=== PATIENT | female | born 2000 | race Two or more races ===

== ENCOUNTER 2023-11-13 07:02 | Emergency (ER) | payer MEDICAID, SELFPAY ==
[2023-11-13 07:11] VITALS: BP 111/56; PULSE 80; RESP 14; TEMP 36.9; O2SAT 98; BMI 23.6
[2023-11-13 07:38] LABS: IDNOW Serial# 6674DD1D
[2023-11-13 07:39] LABS: Strep A Nucleic Acid Negative (Negative)
[2023-11-13] MEDS: dexAMETHasone sod phosphate 10 MG/ML VIAL IVPUSH (09:14)
[2023-11-13] MEDS: Acetaminophen 325 MG TABLET 975 MG PO (09:14)
--- NOTE | 2023-11-13 09:16 | PC.NURSE ---
decadron given po per providers request
--- NOTE | 2023-11-13 09:41 | ED.GENADULT ---
HPI - General Adult General Chief complaint: Upper Respiratory Symptoms Stated complaint: flu like Time Seen by Provider: 11/13/23 09:00 Source: patient Mode of arrival: ambulatory Limitations: no limitations History of Present Illness ED Provider: HARRIETT HERNANDEZ PA-C HPI narrative: 23-year-old female with no significant past medical history presents to the ED today for evaluation of sore throat, odynophagia, watery eyes and shortness of breath x4 days. Admits to being seen at [facility] 4 days ago. She was prescribed cetirizine and Flonase which she has been taking without relief. Endorses worsening sore throat and subjective fevers. Denies difficulty swallowing. Normal p.o. intake. Denies cough, sputum production, dysphagia, nausea or vomiting, rashes. Vaccinations up-to-date. Denies known sick contacts. Related Data Previous Rx's ?Medication ?Instructions ?Recorded penicillin V potassium 500 mg 500 mg PO BID 10 days #20 tabs 11/13/23 tablet phenol 1.5 %-glycerin 33 % mucosal 1 spray mucous membrane Q8-12H PRN 11/13/23 spray (Chloraseptic Max Sore sore throat #118 mL Throat) prednisone 20 mg tablet 40 mg (2 x 20 mg) PO DAILY 4 days 11/13/23 #8 tabs Allergies Allergy/AdvReac Type Severity Reaction Status Date / Time No Known Allergies Allergy Verified 11/13/23 07:12 Review of Systems Review of Systems: Constitutional: No fever, chills, fatigue, night sweats, weight changes ENT/Mouth: No ear pain, hearing loss, nasal congestion, sinus pain, rhinorrhea, +sore throat, +odynophagia, No dysphagia Eyes: No eye pain, swelling, redness, vision changes, discharge Cardio: No chest pain, palpitations, PLATA, orthopnea, peripheral edema Pulm: No SOB, cough, sputum, wheezing, dyspnea, hemoptysis GI: No nausea, vomiting, hematemesis, abdominal pain, diarrhea, constipation, hematochezia, melena : No irregular bleeding, dysuria, frequency, urgency, hesitancy, hematuria, flank pain MSK: No back pain, neck pain, joint pain, myalgias Skin: No lesions, rashes Neuro: No weakness, numbness, paresthesias, LOC, dizziness, headache All other systems reviewed and are negative. [facility] Past Medical History Attestation statement: The following information was validated with the patient. Source: old records reviewed and nursing notes reviewed Social History Social History Advance Directives: No Advance Directives Information Provided: Yes Physical Exam ED Vital Signs: Vital Signs - 24 hr 11/13/23 07:11 11/13/23 10:02 Temperature 98.4 F 97.9 F Pulse Rate 80 Respiratory Rate 14 Blood Pressure 111/56 L Pulse Oximetry 98 Oxygen Delivery Method Room Air BMI result Body Mass Index 23.6 Vital signs stable, afebrile Const General: cooperative, healthy appearing, comfortable and no acute distress Orientation/consciousness: patient oriented x3 Limitations: no limitations HENMT Other: + posterior oropharynx erythematous, no edema, uvula is midline, bilateral tonsillar edema without tonsillar exudates, no peritonsillar masses, controlling secretions and speaking in complete sentences. Head: Yes normal to inspection, Yes normocephalic and Yes atraumatic Ears: hearing grossly normal bilaterally, external ears normal, TM's normal bilaterally, EAC's normal, mastoids normal and no periauricular adenopathy General nose exam: Normal external nose present and No nasal discharge present Face and sinus: Yes normal facial exam and Yes sinuses nontender Eyes General: appearance normal, both eyes and all related structures Pupils: Equal, round and reactive pupils present Neck Other: + no cervical, submandibular or submental LAD. Neck: Yes normal visual inspection and Yes full ROM Resp Effort & Inspection: normal respiratory effort and able to speak in complete sentences Auscultation: clear to auscultation bilaterally Cardio Rate: regular rate Rhythm: regular rhythm GI Inspection: Yes normal to inspection Palpation (GI): Soft to palpation and nontender Skin General skin exam: no rashes or lesions noted Neuro General: patient oriented x3, gait normal and moves all extremities Cranial nerves: Yes Equal, round and reactive pupils present Extrem General: Yes normal to inspection Course Course Course Narrative: 1104-- patient negative for COVID, flu, RSV, and strep throat. Her physical exam findings are consistent with strep throat so I will treat her for this. She was given 1 dose of Decadron and Tylenol in the ED today with improvement in pain. Penicillin sent to pharmacy for treatment of strep throat. Will send for extra days of prednisone to help with tonsillar swelling. tolerating PO in ED. Patient has remained stable throughout ED visit today. Discussed worrisome signs and symptoms and when to return to the ED. All questions answered at this time. Patient is agreeable with disposition and stable for discharge. Medications Administered Discontinued Medications Generic Name Dose Route Start Last Admin Trade Name Essie PRN Reason Stop Dose Admin Acetaminophen 975 mg 11/13/23 09:08 11/13/23 09:14 Acetaminophen 325 Mg Tablet PO 11/13/23 09:09 975 mg ONCE ONE Administration Dexamethasone Sodium Phosphate 10 mg 11/13/23 09:08 11/13/23 09:14 Dexamethasone Sod Phosphate 10 Mg/Ml Vial IVPUSH 11/13/23 09:09 10 mg ONCE ONE Administration Medical Decision Making Medical Decision Making [facility] Narrative: 23-year-old female with no significant past medical history presents to the ED today for evaluation of sore throat, odynophagia, watery eyes and shortness of breath x4 days. Vital signs stable. Afebrile. She is nontoxic appearing in no acute distress. Lungs are CTA bilaterally. No anterior cervical lymphadenopathy. No anterior neck swelling. Bilateral EACs and TMs WNL. posterior oropharynx erythematous, no edema, uvula is midline, bilateral tonsillar edema without tonsillar exudates, no peritonsillar masses, controlling secretions and speaking in complete sentences. Differential diagnosis includes strep throat, viral syndrome, laryngitis. 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 Plan for viral and strep swabs, pain control and re-evaluation. Differential Diagnosis Differential Diagnoses: The differential diagnosis associated with the presentation includes as above. Admission/Observation Not indicated Lab Data [facility] Lab Attestation statement: I reviewed the patient's lab results. as above Labs: Lab Results 11/13/23 11/13/23 Range/Units 07:23 10:00 Influenza Type A (PCR) NEGATIVE (Negative) Influenza Type B (PCR) NEGATIVE (Negative) RSV RNA Qual (PCR) NEGATIVE (Negative) SARS-CoV-2 RNA (RT-PCR) NEGATIVE (Negative) S. pyogenes GrpA FRED Negative (Negative) External Record Review External record reviewed: Inpatient record Prescription Management I considered prescription management with: Pain Medication (Chloraseptic throat spray), Antibiotic (Penicillin) and Other (Prednisone) Social Determinants Patient?s care significantly limited by Social Determinants of Health including: Other Social Determinant of Health Critical Care Time Critical Care Time Critical Care Time: No Discharge Plan Discharge Clinical Impression: Strep pharyngitis Patient Disposition: Home, Self-Care Instructions: Strep Throat (ED) Additional Instructions: You were seen in the ED today for evaluation of sore throat. You tested negative for COVID, flu, RSV and strep throat however your physical exam is consistent with strep throat and you will be treated for this. Penicillin is an antibiotic that has been sent to your pharmacy. Take this twice daily for the next 10 days to treat strep throat. Do not stop taking these antibiotics early or miss any doses as this may cause infection to return or worsen. Chloraseptic throat spray has been sent to your pharmacy to help with sore throat. Prednisone as a steroid that has been sent to your pharmacy. You were given a dose of steroids in the ED today. Start taking prednisone tomorrow to help with tonsillar swelling. Take Tylenol and ibuprofen as needed for body aches or fevers. Make sure to change your toothbrush as this contains bacteria. Strep throat is contagious. If anyone else in your household is exhibiting symptoms, please advise them to come to the ED, urgent care, or to see their primary care provider. Follow up with your primary care provider as needed. Return to the emergency department if your symptoms persist or worsen despite treatment or if you have difficulty swallowing, opening your mouth, or develop a rash. In the case of emergency, call 911.? Prescriptions: New penicillin V potassium 500 mg tablet 500 mg PO BID 10 Days Qty: 20 0RF Chloraseptic Max Sore Throat 1.5-33 % spray,non-aerosol 1 spray mucous membrane Q8-12H PRN (Reason: sore throat) Qty: 118 0RF Rx Instructions: leave on area for 15 seconds then spit out prednisone 20 mg tablet 40 mg PO DAILY 4 Days Qty: 8 0RF Referrals: [facility] [place] Family Medicine [Provider Group] [facility] [place] Primary Care[facility] [Provider Group] [facility] [place] Primary [facility] [Provider Group] Stand Alone Forms: Work/School Release Print Language: Yung
[2023-11-13 10:02] VITALS: TEMP 36.6
[2023-11-13 10:47] LABS: Influenza A PCR NEGATIVE (Negative); Influenza B PCR NEGATIVE (Negative); Resp Syncy Virus RNA Qual PCR NEGATIVE (Negative); SARS COV2 PCR INHOUSE NEGATIVE (Negative)
[2023-11-13 11:07] VITALS: BP 111/56; PULSE 80; RESP 14; TEMP 36.6; O2SAT 98
== END 2023-11-13 11:14 | disposition home or self-care (01) ==
PROVIDERS: Physician Assistant Medical; Emergency Provider Emergency Medicine Emergency Medical Services
DX: J02.0 Streptococcal pharyngitis (principal); R06.02 Shortness of breath; Z03.818 Encounter for observation for suspected exposure to other biological agents ruled out
CPT/HCPCS: 0241U; 87651; 99283; J1100

== ENCOUNTER 2024-04-04 16:23 | Outpatient (REF) | payer SELFPAY ==
[2024-04-05 03:17] LABS: CT PCR DETECTED (Not Detect.); NG PCR NOT DETECTED (Not Detect.)
== END 2024-04-04 16:24 | disposition home or self-care (01) ==
LOC: HO.LNP 16:23
PROVIDERS: Visit Provider Nurse Practitioner
DX: Z13.9 Encounter for screening, unspecified (principal)
CPT/HCPCS: 87491; 87591

== ENCOUNTER 2024-04-06 14:36 | Outpatient (REF) | payer MEDICAID, SELFPAY | END 2024-04-06 14:37 | disposition home or self-care (01) | LOC: HO.US 14:36 | PROVIDERS: PCP Nurse Practitioner; Visit Provider Nurse Practitioner | DX: N92.6 Irregular menstruation, unspecified (principal) | CPT/HCPCS: 76830; 76856 ==

== ENCOUNTER → 2024-04-06 14:39 | Outpatient (BNV) | payer MEDICAID, SELFPAY | PROVIDERS: PCP Nurse Practitioner; Visit Provider Radiology Diagnostic Radiology | DX: N92.1 Excessive and frequent menstruation with irregular cycle (principal) | CPT/HCPCS: 76830; 76856 ==

== ENCOUNTER 2024-04-27 12:44 | Outpatient (REF) | payer MEDICAID, SELFPAY ==
[2024-04-27 13:20] LABS: MANUAL DIFF FLAG NO
[2024-04-27 13:30] LABS: Basophils Percent Auto 0.6 % (0-2); Eosinophils Absolute Auto 0.1 X10*3/uL (0.0-0.4); Eosinophils Percent Auto 1.4 % (0-4); Hematocrit 42.4 % (37.0-47.0); Imm Gran Abs Auto 0.01 X10*3/uL (0.00-0.03); Imm Gran Pct Auto 0.1 % (0.0-0.4); Lymphocytes Absolute Auto 1.6 X10*3/uL (1.2-4.9); Mean Corpuscular Hemoglobin 30.8 pg (27.0-33.0); Mean Corpuscular Volume 93.4 fL (80.0-98.0); Mean Platelet Volume 12.1 fL (9.4-12.3); Monocytes Absolute Auto 0.7 X10*3/uL (0.1-1.2); Monocytes Percent Auto 9.6 % (2-11); Neutrophils Absolute Auto 4.5 x10*3/uL (2.0-8.3); Neutrophils Percent Auto 65.3 % (45-73); Platelet Count 193 X10*3/uL (160-400); Red Blood Count 4.54 X10*6/uL (4.20-5.50); Red Cell Distribution Width 13.2 % (11.0-16.0)
[2024-04-27 14:07] LABS: Anion Gap 10 (12-20); Blood Urea Nitrogen 12 mg/dL (9-16); Calcium 9.1 mg/dL (8.4-10.2); Carbon Dioxide 27 mmol/L (22-29); Chloride 106 mmol/L (96-108); Cholesterol 136 mg/dL (<200); Estimated Glomerular Filt Rate > 60; Glucose Random 94 mg/dL (60-115); HDL Cholesterol 51 mg/dL (>40); Iron 70 mcg/dL (30-160); LDL Cholesterol Calculated 78 mg/dL (<100); Percent Iron Saturation 23 % (15-50); Potassium 3.8 mmol/L (3.3-5.1); Sodium 139 mmol/L (135-145); Total Iron Binding Capacity 309 mcg/dL (228-428); Triglycerides 38 mg/dL (<150); Unsaturated Iron Binding 239 ug/dL
[2024-04-27 14:21] LABS: HBS Num1 0.68 mIU/mL (0-7.99); HBsAGNum1 0.39 S/CO (0.00-0.99); HIV AB/AG Nonreactive (Nonreactive); HIV Num 1 0.06 S/CO (0.00-0.99); Hepatitis B Core Antibody Nonreactive (Nonreactive); Hepatitis B Surface Antigen Negative (Negative); ~HepC Num1 0.09 S/CO (0.00-0.79); ~Hepatitis B Surface Antibody NONREACTIVE (Nonreactive); ~Hepatitis C Antibody Nonreactive (Nonreactive)
[2024-04-27 14:26] LABS: Folate 11.7 ng/mL (> or = 4.0); Vitamin B12 412 pg/mL (200-900)
[2024-04-27 14:31] LABS: Ferritin 51 ng/mL (10-122); TSH reflex Free T4 1.51 uIU/mL (0.32-4.0)
[2024-04-29 07:30] LABS: RPR Rapid Plasma Reagin NON-REACTIVE (NON-REACTIVE)
== END 2024-04-27 12:45 | disposition home or self-care (01) ==
LOC: HO.HHCL 12:44
PROVIDERS: Visit Provider Nurse Practitioner
DX: Z13.9 Encounter for screening, unspecified (principal); N92.6 Irregular menstruation, unspecified; R00.1 Bradycardia, unspecified
CPT/HCPCS: 36415; 80048; 80061; 82607; 82728; 82746; 83540; 84443; 85025; 86592; 86704; 86706; 86803; 87340; 87389

== ENCOUNTER 2024-07-20 16:52 | Emergency (ER) | payer MEDICAID, SELFPAY | END 2024-07-20 18:16 | disposition left against medical advice (07) | PROVIDERS: Emergency Provider Emergency Medicine | DX: J11.1 Influenza due to unidentified influenza virus with other respiratory manifestations (principal); Z53.21 Procedure and treatment not carried out due to patient leaving prior to being seen by health care provider ==

== ENCOUNTER 2024-10-07 08:51 | Emergency (ER) | payer MEDICAID, SELFPAY ==
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
[2024-10-07 09:05] VITALS: BP 121/68; PULSE 56; RESP 16; TEMP 36.6; O2SAT 99; BMI 25.3
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
--- OUTSIDE RECORDS SUMMARY | 2024-10-07 10:32 | XMS_ITS | Clinical Summary ---
Author Organization [employer] Address [address] [place] [address] [address] [place] [address] Care Team Providers Care Topographical Surveyor Name Role Phone Edwardo Fawn BRADFORD Primary Care Provider [phone] Allergies Active Allergy Reactions Criticality Noted Date Comments Pollen Extract 10/03/2022 Medications * This document contains information received from the source organization and may not represent a complete record from that organization. cetirizine (ZyrTEC ALLERGY) 10 MG tablet Take 10 mg by mouth. 4 Active ondansetron ODT (Zofran-ODT) 4 MG disintegrating tablet Take 4 mg by mouth. 3 Active albuterol 108 (90 Base) MCG/ACT inhalerIndications :Mild intermittent asthma without complication Inhale 2 puffs every 4 (four) hours if needed for wheezing. 18 g 3 4 025 Active fluticasone (Flonase Allergy Relief) 50 MCG/ACT nasal sprayIndications:I nfluenza A Administer 1 spray into each nostril Once per day. Shake gently. Before first use, prime pump. After use, clean tip and replace cap. 16 g 1 5 026 Active Active Problems Problem Noted Date Diagnosed Date Routine adult health maintenance 05/02/2024 Assessment & Plan (05/02/2024 8:12 PM EST): -Optometry: 2017 last exam; reports no problems -Dental: established with dental home [facility] dental. Last seen -11/2022 -Breast CA: not due at this time -Cervical CA: due to start screening. Will schedule for pap -Colon CA: not due for routine screening at this time -Lung CA: not due for routine screening at this time -Outstanding IZ: influenza, PCV 20 -low cardiovascular risk -mental health screening negative -healthy social behaviors encouraged -anticipatory guidance reviewed: diet, exercise Resolved Problems Problem Noted Date Diagnosed Date Resolved Date Overweight 05/02/2024 05/02/2024 Encounters Date Type Department Care Team Description 08/31/2024 Population Health Risk Score Community Care [facility] ([facility]) Department [address] [place] [phone] Provider, Population Health Generic 07/29/2024 3:00 PM EST Office Visit [facility] [address] [place] [phone] Fawn Brooke NP Influenza A (Primary Dx) 07/21/2024 4:00 PM EST Office Visit [facility] [address] [place] [phone] Fawn Brooke NP Sore throat (Primary Dx); Viral illness from Last 3 Months Immunizations Name Administration Dates Next Due HPV, Quadrivalent 04/29/2017 [place] SARS-CoV-2 Vaccination 12/03/2020 Meningococcal B, Recombinant 07/06/2019 Meningococcal MCV4O 04/29/2017 Moderna Covid-19 Vaccine 12+ 06/04/2021 Moderna Covid-19 Vaccine 6+ Bivalent 07/24/2022 SARS-CoV-2, Unspecified 12/03/2020 Tdap 04/29/2017 Family History Medical History Relation Name Comments Diabetes Brother Heart disease Maternal Grandfather Heart disease Maternal Grandmother Diabetes Mother's Brother Diabetes Mother's Sister Relation Name Status Comments Brother Maternal Grandfather Maternal Grandmother Mother's Brother Mother's Sister Social History Tobacco Use Types Packs/Day Years Used Date Smoking Tobacco: Never Smokeless Tobacco: Current Tobacco Cessation:Ready to Q uit: Not Asked; Counseling Given: Not Answered Comments:Vapes nicotine two times daily Alcohol Use Standard Drinks/Week Comments Never 0 (1 standard drink = 0.6 oz pur e alcohol) Depression Answer Date Recorded Patient Health Questionnaire-9 Score 3 04/04/2024 Patient Health Questionnaire-9 Score 3 04/04/2024 Last PHQ-9: Questionnaire Data Not on file 1 Housing Stability Answer Date Recorded What is your housing situation today? I have deisi hunter 03/28/[address] you li ve. Do you have problems with any of the following? None of the above 03/28/2024 Food Insecurity Answer Date Recorded Within the past 12 months, y ou worried that your food would run out before you got money to buy more: Never True 03/28/2024 Within the past 12 months,th e food you bought just didn't last and you didn't have enough money to get more: Never True Transportation Answer Date Recorded In the past 12 months, has l ack of transportation kept you from medical appts, meetings, work or from getting things needed for daily living? No 03/28/2024 Utilities Answer Date Recorded In the past 12 months, has t he electric, gas, oil or water company threatened to shut off services in your home? No 03/28/2024 Depression Answer Date Recorded Patient Health Questionnaire-2 Score 1 04/04/2024 Internet Access Answer Date Recorded Internet Access Q1 Yes 03/28/2024 Internet Access Q2 Not on file 03/28/2024 Comments No Sex and Gender Information Value Date Recorded Sex Assigned at Female 07/24/2022 1:52 PM EST Legal Sex Female 1:50 PM EST Gender Identity Female 07/24/2022 1:52 PM EST Sexual Orientation Straight 07/24/2022 1: 52 PM EST Last Filed Vital Signs Vital Sign Reading Time Taken Comments Blood Pressure 115/70 07/29/2024 3:05 PM EST Pulse 91 07/29/2024 3:05 PM EST Temperature 36.7 ??C (98 ??F) 07/29/2024 3:05 PM EST Respiratory Rate 18 07/29/2024 3:05 PM EST Oxygen Saturation 98% 07/29/2024 3:05 PM EST Inhaled Oxygen Concentration - - Weight 62.9 kg (138 lb 9.6 oz) 07/29/2024 3:05 P M EST Height 160 cm (5' 3 ) 07/29/2024 3:05 PM EST Body Mass Index 24.55 07/29/2024 3:05 PM EST Plan of Treatment Health Maintenance Due Date Last Done Comments Dental Oral Exam 2002 Dental Prophylaxis 2002 Dental X-Ray: Bitewings 2002 Family Planning (PISQ) 2017 HPV Vaccines (2 - 2-dose series) 10/27/2017 04/29/2017 Hepatitis B Vaccines (1 of 3 - 19+ 3-dose series) 2021 Pneumococcal Vaccine: Pediatrics (0 to 5 Years) and At-Risk Patients (6 to 49) Years) (1 of 2 - PCV) 2021 Pap Smear 2023 COVID-19 Vaccine ( season) 2024 07/24/2022, 06/04/2021, 12/03/2020, Additional history exists Influenza Vaccine (#1) 2024 SDOH Screening 03/28/2025 03/28/2024 Alcohol/Substance Use Screening 04/04/2025 04/04/2024 Depression Screening 04/04/2025 04/04/2024, 04/04/20 24 Chlamydia and Gonorrhea Screening 05/13/2025 05/13/2024, 05/13/2024, 05/13/2024, Additional history exists Tobacco Screening 07/29/2025 07/29/2024 Dental X-Ray: Full Mouth 10/04/2025 10/03/2022 DTaP/Tdap/Td Vaccines (3 - Td or Tdap) 04/29/2027 04/29/2017, 07/27/2013 Lipid Panel 04/27/2029 04/27/2024 Zoster Vaccines (1 of 2) 2052 RSV Patients and Patients Aged 60 years or older (1 - 1-dose 75+ series) 2077 Meningococcal Vaccine Aged Out 04/29/2017, 014 No longer eligible based on patient's age to complete this topic HIV Screening Completed 05/13/2024, 04/27/2024 Hepatitis C Screening Completed 05/13/2024, 024 HIB Vaccines Aged Out No longer eligi ble based on patient's age to complete this topic Hepatitis A Vaccines Aged Out No long er eligible based on patient's age to complete this topic IPV Vaccines Aged Out No longer eligi ble based on patient's age to complete this topic RSV under 20 months Aged Out No longe r eligible based on patient's age to complete this topic Rotavirus Vaccines Aged Out No longer eligible based on patient's age to complete this topic Procedures Procedure Name Priority Date/Time Associated Diagnosis Comments POCT INFLUENZA A (ID NOW RAPID MOLECULAR) Routine 07/29/2024 3:16 PM EST Influenza A POCT INFLUENZA B (ID NOW RAPID MOLECULAR) Routine 07/29/2024 3:16 PM EST Influenza A POCT RAPID STREP A Routine 07/29/2024 3: 15 PM EST Influenza A POCT RAPID COVID ANTIGEN Routine 07/29/2024 3:15 PM EST Influenza A POCT INFLUENZA B (ID NOW RAPID MOLECULAR) Routine 07/21/2024 4:34 PM EST Sore throat POCT INFLUENZA A (ID NOW RAPID MOLECULAR) Routine 07/21/2024 4:33 PM EST Sore throat POCT RAPID COVID ANTIGEN Routine 07/21/2024 4:24 PM EST Sore throat POC CAMPOS ID NOW STREP A Routine 07/21/2024 4:18 PM EST Sore throat HEPATITIS C ANTIBODY ([facility]) Routine 05/13/2024 HIV ANTIBODY/ANTIGEN ([facility]) Routine 05/13/2024 CHLAMYDIA/GONORRHEA THROAT SWAB ([facility]) Routine 05/13/2024 LIPID PANEL, STANDARD Routine 04/27/2024 12:45 PM EST Encounter for health-related screening PANORAMIC RADIOGRAPHIC IMAGE Routine 10/03/2022 9:30 AM EDT from Last 3 Months or Most Recently Relevant to Health Maintenance Results * Influenza B (ID NOW Rapid Molecular) (07/29/2024 3:16 PM EST) Only the most recent of2 resultswithin the time period is included. Pathologist [facility] Influenza B Negative Negative, Indeterminate [facility] Swab 07/29/2024 3:16 PM EST [facility] RAIL MAINTENANCE WORKER POINT OF CARE TEST ENTER/EDIT O RDERABLES Final Result Performing Organization Address [facility] Co de Phone Number [facility] [address] [place] [phone] * (ABNORMAL) Influenza A (ID NOW Rapid Molecular) (07/29/2024 3:16 PM EST) Only the most recent of2 resultswithin the time period is included. [facility] Influenza A Positive( A) Negative, Indeterminate [facility] Swab 07/29/2024 3:16 PM EST [facility] RAIL MAINTENANCE WORKER POINT OF CARE TEST ENTER/EDIT O RDERABLES Final Result Performing Organization Address [facility] Co de Phone Number [facility] [address] [place] [phone] * POCT Rapid COVID Ag (07/29/2024 3:15 PM EST) Only the most recent of2 resultswithin the time period is included. [facility] Rapid COVID Ag Negative Swab 07/29/2024 3:15 PM EST [facility] RAIL MAINTENANCE WORKER POINT OF CARE TEST ENTER/EDIT O RDERABLES Final Result * POCT rapid strep A manually resulted (07/29/2024 3:15 PM EST) [facility] Rapid Strep A Screen Negative Negative, None Detected Swab 07/29/2024 3:15 PM EST [facility]ra RAIL MAINTENANCE WORKER POINT OF CARE TEST ENTER/EDIT O RDERABLES Final Result * POCT Rapid Strep A CAMPOS ID NOW (07/21/2024 4:18 PM EST) Pathologist [facility] Rapid Strep A Screen Negative Negative, None Detected QC Media Lot # [id number] Lot# Expiration Date Swab 07/21/2024 4:18 PM EST Fawn Macdonaldm RAIL MAINTENANCE WORKER POINT OF CARE TEST ENTER/EDIT O RDERABLES Final Result * Chlamydia/Gonorrhea Throat Swab ([facility]) (05/13/2024) [facility] Chlamydia Throat Swab Negative Gonorrhea Throat Swab Negative Swab 05/13/2024 Result [facility] Provider MD LAB MICROBIOLOGY - GENERA L ORDERABLES Final Result * Hepatitis C Antibody ([facility]) (05/13/2024) [facility] Hepatitis C Ab Nonreactive Blood 05/13/2024 Result [facility] Provider MD LAB BLOOD ORDERABLES Concha l Result * HIV Ab/Ag ([facility]) (05/13/2024) [facility] HIV Ag/Ab Nonreactive Blood 05/13/2024 Result [facility] Provider MD LAB BLOOD ORDERABLES Concha l Result * Lipid Panel, Standard (04/27/2024 12:45 PM EST) [facility] Triglycerides 38 <150 mg/dL [facility] Comment:Desirable Triglyceri de: less than 150 mg/dLBorderline High Triglyceride 150-199 mg/dLHigh Triglyceride: 200-499 mg/dLVery High Triglyceride: greater than or equal to 5OO mg/dL Cholesterol 136 <200 mg/dL [facility] Comment:Desirable Cholestero l: less than 200 mg/dLBorderline High Cholesterol: 200-239 mg/dLHigh Cholesterol: greater than 239 mg/dL LDL Cholesterol Calculated 78 <100 mg/dL [facility] Comment:Desirable LDL: less than 100 mg/dLNear Optimal/Above Optimal LDL: 110- 129 mg/dLBorderline High LDL: 130-159 mg/dLHigh LDL: 160-189 mg/dLVery High LDL: greater than or equal to 190 mg/dL HDL Cholesterol 51 >40 mg/dL [facility] Comment:Desirable HDL: great er than 40 mg/dL Note: This HDL assay may give artificially low results in patients with liver disease. Blood Venous blood specimen / Unknown 04/27/2024 12:45 PM EST 04/27/2024 1:22 PM EST Fawn Brooke RAIL MAINTENANCE WORKER LAB BLOOD ORDERABLES Final Resu lt [facility] [address] [place] [phone] from Last 3 Months or Most Recently Relevant to Health Maintenance Insurance [place] [id number] [facility] MEDICAID STAND ADULT Care Teams Topographical Surveyor Relationship Specialty Start Date End Date Fawn Brooke NP [address] [place] [address] PCP - General Family Medicine 04/04/24
--- OUTSIDE RECORDS SUMMARY | 2024-10-07 10:32 | XMS_ITS | Clinical Summary ---
Author Organization [email or web address] [facility] it Address [address] [place] [address] Care Team Providers Care Real Estate Professional Name Role Phone Unavailable Primary Care Provider Unavailabl e Social History Tobacco Use Types Packs/Day Years Used Date Smoking Tobacco: Never Assessed Comments Unknown Sex and Gender Information Value Date Recorded Sex Assigned at Not on file Legal Sex Female 4:17 AM EST Gender Identity Not on file Sexual Orientation Not on file Plan of Treatment Health Maintenance Due Date Last Done Comments Gonorrhea/Chlamydia Screening 2002 HPV Vaccines (1 - 3-dose series) 2017 Meningococcal B Vaccine (1 o f 2 - Standard) 2018 DTaP,Tdap,and Td Vaccines (1 - Tdap) 2021 Hepatitis B Vaccines (1 of 3 - 19+ 3-dose series) 2021 Cervical Cancer Screening: P ap Smear 2023 COVID-19 Vaccine ( - 2023-2 5 season) 2024 Influenza Vaccine (Season Ended) 2025 HIB Vaccines Aged Out No longer eligi ble based on patient's age to complete this topic Hepatitis A Vaccines Aged Out No long er eligible based on patient's age to complete this topic IPV Vaccines Aged Out No longer eligi ble based on patient's age to complete this topic MMR Vaccines Aged Out No longer eligi ble based on patient's age to complete this topic Meningococcal ACWY Vaccine Aged Out N o longer eligible based on patient's age to complete this topic Pneumococcal Vaccine: Pediat rics (0 to 5 Years) and At-Risk Patients (6 to 64 Years) Aged Out No longer eligible b ased on patient's age to complete this topic RSV Immunization Patients Un kiran 20 months Aged Out No longer eligible b ased on patient's age to complete this topic Varicella Vaccines Aged Out No longer eligible based on patient's age to complete this topic
[2024-10-07 11:41] VITALS: BP 121/68; PULSE 56; RESP 16; TEMP 36.6; O2SAT 99
== END 2024-10-07 11:43 | disposition home or self-care (01) ==
PROVIDERS: Emergency Provider Emergency Medicine
DX: S09.90XA Unspecified injury of head, initial encounter (principal); V43.62XA Car passenger injured in collision with other type car in traffic accident, initial encounter; Y93.9 Activity, unspecified; Y92.9 Unspecified place or not applicable; Y99.9 Unspecified external cause status; M54.2 Cervicalgia; R51.9 Headache, unspecified
CPT/HCPCS: 70450; 72125; 99282; 99284

== ENCOUNTER → 2024-10-07 09:08 | Outpatient (BNV) | payer MEDICAID, SELFPAY | PROVIDERS: Emergency Provider Emergency Medicine; Visit Provider Radiology Diagnostic Radiology | DX: M54.2 Cervicalgia (principal); R51.9 Headache, unspecified; V89.2XXA Person injured in unspecified motor-vehicle accident, traffic, initial encounter | CPT/HCPCS: 70450; 72125 ==

== ENCOUNTER 2025-02-03 14:38 | Emergency (ER) | payer MEDICAID, SELFPAY ==
--- OUTSIDE RECORDS SUMMARY | 2025-01-31 14:20 | XMS_ITS | Encounter Summary ---
Author Organization [employer] Address [address] [place] [address] Care Team Providers Care Hydroelectric Plant Electrical Engineer Name Role Phone Renaefranki Fawn SANCHEZ Primary Care Provider [phone] Reason for Visit * Reason Comments Sore Throat Encounter Details Date Type Department Care Team ([facility] Contact Info) Description 01/31/2025 2:20 PM EDT Office Visit [facility] [address] [place] [phone] Marivel Sutton MD [address] [place] [address] Acute URI (Primary Dx) Social History Tobacco Use Types Packs/Day Years Used Date Smoking Tobacco: Never Smokeless Tobacco: Current Comments:Vapes nicotine two times daily Alcohol Use Standard Drinks/Week Comments Never 0 (1 standard drink = 0.6 oz pur e alcohol) Depression Answer Date Recorded Patient Health Questionnaire-9 Score 3 04/04/2024 Patient Health Questionnaire-9 Score 3 04/04/2024 Last PHQ-9: Questionnaire Data Not on file 1 Housing Stability Answer Date Recorded What is your housing situation today? I have deisimai hunter 03/28/[address] you [...] Orientation Straight 07/24/2022 1: 52 PM EST documented as of this encounter Last Filed Vital Signs Vital Sign Reading Time Taken Comments Blood Pressure 105/62 01/31/2025 2:22 PM EDT Pulse 61 01/31/2025 2:22 PM EDT Temperature 36.3 C (97.4 F) 01/31/2025 2:22 PM EDT Respiratory Rate 18 01/31/2025 2:22 PM EDT Oxygen Saturation 97% 01/31/2025 2:22 PM EDT Inhaled Oxygen Concentration - - Weight 69.6 kg (153 lb 6.4 oz) 01/31/2025 2:22 P M EDT Height - - Body Mass Index 27.17 07/29/2024 3:05 PM EST documented in this encounter Progress Notes * Marivel Sutton MD - 01/31/2025 2:20 PM EDT Subjective History was provided by the patient. Marcelo Kay is a 24 y.o. female who presents for evaluation of symptoms of a URI. Symptoms include cough, myalgia, runny nose, chills, congestion, sore throat, nausea, vomiting, ear pain, sick contacts, and recent travel. Onset of symptoms was 1 days ago, unchanged since that time. Associated negative symptoms include rash and recent travel. Evaluation to date: none. Treatment to date: none Objective Vitals: 01/31/25 1422 BP: 105/62 BP Location: Left arm Patient Position: Sitting BP Cuff Size: Adult Pulse: 61 Resp: 18 Temp: 97.4 ??F (36.3 ??C) TempSrc: Oral SpO2: 97% Weight: 153 lb 6.4 oz (69.6 kg) Physical Exam Constitutional: Appearance: Normal appearance. HENT: Right Ear: Tympanic membrane normal. Left Ear: Tympanic membrane normal. Nose: Congestion and rhinorrhea present. Mouth/Throat: Pharynx: Oropharynx is clear. No oropharyngeal exudate. Eyes: Conjunctiva/sclera: Conjunctivae normal. Cardiovascular: Rate and Rhythm: Normal rate and regular rhythm. Heart sounds: Normal heart sounds. Pulmonary: Effort: Pulmonary effort is normal. Breath sounds: Normal breath sounds. Musculoskeletal: Cervical back: Normal range of motion. No rigidity or tenderness. Lymphadenopathy: Cervical: Cervical adenopathy present. Neurological: Mental Status: She is alert. Psychiatric: Behavior: Behavior normal. No visits with results within 2 Day(s) from this visit. Latest known visit with results is: Office Visit on 11/10/2024 Component Date Value Ref Range Status Rapid COVID Ag 11/10/2024 Negative Final Influenza A 11/10/2024 Negative Negative, Indeterminate Final Influenza B 11/10/2024 Negative Negative, Indeterminate Final Assessment & Plan Acute URI -No evidence of respiratory distress. Symptoms mild. -No evidence of dehydration. -Supportive care advised, OTC meds and hydration -Isolation recommendations discussed. -ER precautions discussed. - work note given, call if needs extended -Seek medical attention for worsening symptoms. documented in this encounter Plan of Treatment Not on file documented as of this encounter Procedures Procedure Name Priority Date/Time Associated Diagnosis Comments POCT INFLUENZA A Routine 01/31/2025 2:55 PM EDT Acute URI POCT RAPID COVID ANTIGEN Routine 01/31/2025 2:54 PM EDT Acute URI POCT INFLUENZA B Routine 01/31/2025 2:54 PM EDT Acute URI POCT RAPID STREP A Routine 01/31/2025 2: 52 PM EDT Acute URI documented in this encounter Results * POCT Influenza A manually resulted (01/31/2025 2:55 PM EDT) [facility] Rapid Influenza A Ag Negative Negative, Indeterminate QC Media Lot # [id number] Lot# Expiration Date [id number] Swab Nasopharyngeal structure / Unknown 01/31/2025 2:55 PM EDT Marivel Sutton MD POINT OF CARE TEST ENTER/E DIT ORDERABLES Final Result * POCT Rapid COVID Ag (01/31/2025 2:54 PM EDT) [facility] Rapid COVID Ag Negative QC Media Lot # [id number] Lot# Expiration Date [id number] Swab 01/31/2025 2:54 PM EDT Result [facility] Marivel Sutton MD POINT OF CARE TEST ENTER/E DIT ORDERABLES Final Result * POCT Influenza B manually resulted (01/31/2025 2:54 PM EDT) [facility] Rapid Influenza B Ag Negative Negative, Indeterminate QC Media Lot # [id number] Lot# Expiration Date [id number] Swab 01/31/2025 2:54 PM EDT Result [facility] Marivel Sutton MD POINT OF CARE TEST ENTER/E DIT ORDERABLES Final Result * POCT rapid strep A manually resulted (01/31/2025 2:52 PM EDT) [facility] Rapid Strep A Screen Negative Negative, None Detected QC Media Lot # [id number] Lot# Expiration Date [id number] Swab 01/31/2025 2:52 PM EDT Result [facility] Marivel Sutton MD POINT OF CARE TEST ENTER/E DIT ORDERABLES Final Result documented in this encounter Visit Diagnoses Diagnosis Acute URI- Primary Acute upper respiratory infections of unspecified site documented in this encounter Additional Health Concerns Assessment Noted Time PHQ-9 Depression Total Score: 3 04/04/20 2:54 PM EDT documented as of this encounter Care Teams Hydroelectric Plant Electrical Engineer Relationship Specialty Start Date End Date Fawn Brooke NP [address] [place] [address] PCP - General Family Medicine 04/04/24 documented as of this encounter
--- NOTE | ~2025-02-03 | CT_ITS ---
EXAMINATION: CT HEAD WITHOUT CONTRAST CLINICAL INFORMATION: Trauma COMPARISON: October 07, 2024 TECHNIQUE: Contiguous axial imaging was performed from the skull base to vertex without intravenous administration of contrast. This CT examination was performed using dose optimization techniques as appropriate, variously including the following: *Automated exposure control *Adjustment of mA and/or kV according to patient size (this includes techniques or standardized protocols for targeted exams where dose is matched to indication/reason for exam; i.e. extremities or head) *Use of iterative reconstruction technique DLP: 902 mGY*cm FINDINGS: There is no acute ischemic change. There is no intracranial hemorrhage. There is no mass-effect or midline shift. Basal cisterns and ventricles are within normal limits for age/cerebral volume. Orbits are symmetrical and unremarkable. There is mucosal thickening in the paranasal sinuses, sparing the frontal sinuses. There are no bony abnormalities. CT/CT head/brain wo IV con IMPRESSION: No acute intracranial abnormality. Pansinusitis. Frontal sinuses are not involved Electronically signed by: Micheal Daigle MD 02/03/2025 03:52 PM EDT
--- NOTE | ~2025-02-03 | XR_ITS ---
EXAMINATION: XR CERVICAL SPINE CLINICAL INFORMATION: trauma COMPARISON: None available. TECHNIQUE: 4 views of the cervical spine were obtained. FINDINGS: There is mild reversal of the normal cervical lordosis. No fractures are identified. There is no prevertebral soft tissue swelling. No degenerative changes are evident. XR/XR cervical spine 3V IMPRESSION: There is mild reversal of cervical lordosis. This can be related to positioning, muscle spasm, or posterior soft tissue injury. Electronically signed by: Micheal Daigle MD 02/03/2025 03:33 PM EDT
--- NOTE | ~2025-02-03 | XR_ITS ---
EXAMINATION: XR LUMBOSACRAL SPINE CLINICAL INFORMATION: trauma COMPARISON: None available. TECHNIQUE: Three views of the lumbosacral spine. FINDINGS: There are 5 nonrib-bearing lumbar segments. Vertebral body height and alignment is preserved. Schmorl nodes are present at superior L1, L2, L3. XR/XR lumbar spine 2-3V IMPRESSION: There are Schmorl's nodes at L1, L2, L3 superior endplates . Electronically signed by: Micheal Daigle MD 02/03/2025 03:32 PM EDT
--- NOTE | ~2025-02-03 | CT_ITS ---
EXAMINATION: CT CERVICAL SPINE WITHOUT CONTRAST CLINICAL INFORMATION: Trauma COMPARISON: None available. TECHNIQUE: Spiral CT imaging of the cervical spine performed in axial plane without contrast. Multiplanar reformatted images were constructed from the axial data set. This CT examination was performed using dose optimization techniques as appropriate, variously including the following: *Automated exposure control *Adjustment of mA and/or kV according to patient size (this includes techniques or standardized protocols for targeted exams where dose is matched to indication/reason for exam; i.e. extremities or head) *Use of iterative reconstruction technique FINDINGS: CORONAL ALIGNMENT: -Normal. SAGITTAL ALIGNMENT: -Mild reversal of the normal lordosis centered at C4. No traumatic subluxation. C1-C2 AND CRANIOCERVICAL JUNCTION: -Intact and aligned normally. VERTEBRAL BODIES AND FACETS: -No fracture, compression deformity, or suspicious bone lesion. -No traumatic subluxations. -Normal facet alignment bilaterally. DISCS: -Preserved throughout. CENTRAL CANAL: -No evidence of high-grade central canal narrowing or large disc herniation allowing for modality limitations. PREVERTEBRAL AND PARAVERTEBRAL SOFT TISSUES: -No prevertebral or paravertebral soft tissue swelling or abnormality. No abnormal fluid collection. -Normal thyroid. LUNG APICES: -Clear bilaterally. CT/CT cervical spine wo IV con IMPRESSION: 1. No CT evidence of acute cervical spine fracture or injury. Electronically signed by: Nik Arriaga MD 02/03/2025 04:01 PM EDT
[2025-02-03 14:53] VITALS: BP 111/55; PULSE 64; RESP 16; TEMP 37; O2SAT 98; BMI 26.8
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
--- OUTSIDE RECORDS SUMMARY | 2025-02-03 15:47 | XMS_ITS | Clinical Summary ---
Author Organization [employer] Address [address] [place] [address] [address] [place] [address] Care Team Providers Care [employer]er [employer] Name Role Phone RenaeFawn doan SANCHEZ Primary Care Provider [phone] Allergies Active Allergy Reactions Criticality Noted Date Comments Pollen Extract 10/03/2022 Medications * This document contains information received from the source organization and may not represent a complete record from that organization. fluticasone (Flonase Allergy Relief) 50 MCG/ACT nasal sprayIndications: Seasonal allergies Administer 1 spray into each nostril Once per day. Shake gently. Before first use, prime pump. After use, clean tip and replace cap. 16 g 1 11/11/19 25 2025 Active Ketotifen Fumarate 0.035 % solutionIndicatio ns:Seasonal allergies Administer 1 drop into affected eye(s) if needed in the morning and at bedtime (allergies). 10 mL 3 11/11/19 Active albuterol 108 (90 Base) MCG/ACT inhalerIndication s:Mild intermittent asthma without complication Inhale 2 puffs every 4 (four) hours if needed for wheezing. 18 g 3 11/11/19 25 2025 Active ipratropium (Atrovent) 0.03 % nasal sprayIndications: Acute URI Administer 1 spray into each nostril every 12 (twelve) hours. 30 mL 12 11/11/19 25 2025 Active ondansetron (Zofran) 4 MG tabletIndications :Nausea and vomiting, unspecified vomiting type Take 1 tablet (4 mg) by mouth every 8 (eight) hours if needed for nausea or vomiting for up to 10 doses. 10 tablet 01/03/20 25 Active SUMAtriptan (Imitrex) 25 MG tabletIndications :Acute nonintractable headache, unspecified headache type Take 1 tablet (25 mg) by mouth 1 (one) time if needed for migraine for up to 9 doses. And lye down for at least 30 mins. May repeat dose once in 2 hours if no relief. Do not exceed 2 doses in 24 hours. Take with naproxen 9 tablet 01/03/20 25 Active cetirizine (ZyrTEC) 10 MG tabletIndications :Seasonal allergies TAKE 1 TABLET BY MOUTH ONCE DAILY 90 tablet 1 02/02/20 25 Active cetirizine (ZyrTEC ALLERGY) 10 MG tabletIndications :Seasonal allergies Take 1 tablet (10 mg) by mouth Once per day. 30 tablet 2 11/11/19 25 2024 Discontinued naproxen (Naprosyn) 500 MG tabletIndications :Acute nonintractable headache, unspecified headache type Take 1 tablet (500 mg) by mouth 2 times daily. 60 tablet 01/03/20 25 2024 Active Problems Problem Noted Date Diagnosed Date Routine adult health maintenance 05/02/2024 Assessment & Plan (05/02/2024 8:12 PM EST): -Optometry: 2017 last exam; reports no problems -Dental: established with dental home [facility] dental. Last seen -11/2022 -Breast CA: [...] Encounters Date Type Department Care Team Description 02/03/2025 Orders Only [facility] External Provider, [facility] 02/01/[address] [facility] [address] [address] Marivel Sutton MD Seasonal allergies 01/31/2025 2:20 PM EDT Office Visit [facility] [address] [place] [phone] Marivel Sutton MD Acute URI (Primary Dx) 01/31/2025 Travel 01/02/2025 5:00 PM EDT [facility] [address] [address] Fawn Brooke NP Acute nonintractable headache, unspecified headache type (Primary Dx); Dizziness; Diarrhea, unspecified type; Nausea and vomiting, unspecified vomiting type 01/02/2025 Travel 11/10/2024 3:20 PM EDT Office Visit [facility] [address] [address] Marivel Sutton MD Seasonal allergies (Primary Dx); Mild intermittent asthma without complication; Acute URI 11/10/2024 Travel from Last 3 Months Immunizations Immunization Administration Dates Next Due HPV, Quadrivalent 04/29/2017 [...] oz) 01/31/2025 2:22 P M EDT Height 160 cm (5' 3 ) 07/29/2024 3:05 PM EST Body Mass Index 27.17 07/29/2024 3:05 PM EST Plan of Treatment Health Maintenance Due Date Last Done Comments Dental Oral Exam 2002 Dental Prophylaxis 2002 Dental X-Ray: Bitewings 2002 Family Planning (PISQ) 2017 HPV Vaccines (2 - 2-dose series) 10/27/2017 04/29/2017 Meningococcal B Vaccine (2 of 2 - Trumenba SCDM 2-dose series) 01/04/2020 07/06/2019 Hepatitis B Vaccines (1 of 3 - 19+ 3-dose series) 2021 Pneumococcal Vaccine: Pediatrics (0 to 5 Years) and At-Risk Patients (6 to 49) Years (1 of 2 - PCV) 2021 Pap Smear 2023 COVID-19 Vaccine ( - season) 2024 07/24/2022, 06/04/2021, 12/03/2020, Additional history exists Influenza Vaccine (#1) 2025 SDOH Screening 03/28/2025 03/28/2024 Alcohol/Substance Use Screening 04/04/2025 04/04/2024 Depression Screening 04/04/2025 04/04/2024, 04/04/20 24 Chlamydia and Gonorrhea Screening 05/13/2025 05/13/2024, 05/13/2024, 05/13/2024, Additional history exists Dental X-Ray: Full Mouth 10/04/2025 10/03/2022 Disability Screening 11/10/2025 11/10/2024 Tobacco Screening 01/02/2026 01/02/2025 DTaP/Tdap/Td Vaccines (3 - Td or Tdap) [...] Procedure Name Priority Date/Time Associated Diagnosis Comments XR CERVICAL SPINE 3V Routine 02/03/2025 3:15 PM EDT XR LUMBAR SPINE 2-3 VIEWS Routine 02/03/2025 2:21 PM EDT POCT INFLUENZA A Routine 01/31/2025 2:55 PM EDT Acute URI POCT RAPID COVID ANTIGEN Routine 01/31/2025 2:54 PM EDT Acute URI POCT INFLUENZA B Routine 01/31/2025 2:54 PM EDT Acute URI POCT RAPID STREP A Routine 01/31/2025 2: 52 PM EDT Acute URI POCT INFLUENZA B (ID NOW RAPID MOLECULAR) Routine 11/10/2024 3:43 PM EDT Seasonal allergies POCT INFLUENZA A (ID NOW RAPID MOLECULAR) Routine 11/10/2024 3:43 PM EDT Seasonal allergies POCT RAPID COVID ANTIGEN Routine 11/10/2024 3:43 PM EDT Seasonal allergies HEPATITIS C ANTIBODY ([facility]) Routine 05/13/2024 HIV ANTIBODY/ANTIGEN ([facility]) Routine 05/13/2024 CHLAMYDIA/GONORRHEA THROAT SWAB ([facility]) Routine 05/13/2024 LIPID PANEL, STANDARD Routine 04/27/2024 12:45 PM EST Encounter for health-related screening PANORAMIC RADIOGRAPHIC IMAGE Routine 10/03/2022 9:30 AM EDT from Last 3 Months or Most Recently Relevant to Health Maintenance Results * XR CERVICAL SPINE 3V (02/03/2025 3:15 PM EDT) Anatomical Region Laterality Modality Abdomen Radiographic Hemalatha ging 02/03/2025 3:15 PM EDT Narrative 02/03/2025 3:36 PM EDT [address] [address] XRay Report Signed Patient: Marcelo Kay I MR#: [id number] : 2000 Acct:[id number] Age/Sex: 24 / F ADM Date: 02/03/25 Loc: HO.ED Attending Dr: Ordering Physician: Jorge Montano Date of Service: 02/03/25 Procedure(s): XR cervical spine 3V Accession Number(s): [id number] cc: [facility]; Jorge Montano EXAMINATION: XR CERVICAL SPINE CLINICAL INFORMATION: trauma COMPARISON: None available. TECHNIQUE: 4 views of the cervical spine were obtained. FINDINGS: There is mild reversal of the normal cervical lordosis. No fractures are identified. There is no prevertebral soft tissue swelling. No degenerative changes are evident. XR/XR cervical spine 3V IMPRESSION: There is mild reversal of cervical lordosis. This can be related to positioning, muscle spasm, or posterior soft tissue injury. Electronically signed by: Micheal Daigle MD 02/03/2025 03:33 PM EDT Dictated By: Micheal Daigle MD Signed By: <Electronically signed by Micheal Daigle MD in OV> 02/03/25 1533 DD/ 1515 TD/TT: 02/03/25 1529 Despatching And Receiving Clerk: Procedure Note Donotuseinterpreter, Image - 02/03/[address] [address] XRay Report Signed Patient: Marcelo Kay IMR#: [id number] : 2000Acct:[id number] Age/Sex: 24 / FADM Date: 02/03/25 Loc: HO.ED Attending Dr: Ordering Physician: Jorge Montano Date of Service: 02/03/25 Procedure(s): XR cervical spine 3V Accession Number(s): [id number] cc: [facility]; Jorge Montano EXAMINATION: XR CERVICAL SPINE CLINICAL INFORMATION: trauma COMPARISON: None available. TECHNIQUE: 4 views of the cervical spine were obtained. FINDINGS: There is mild reversal of the normal cervical lordosis. No fractures are identified. There is no prevertebral soft tissue swelling. No degenerative changes are evident. XR/XR cervical spine 3V IMPRESSION: There is mild reversal of cervical lordosis. This can be related to positioning, muscle spasm, or posterior soft tissue injury. Electronically signed by: Micheal Daigle MD 02/03/2025 03:33 PM EDT RP Dictated By: Micheal Daigle MD Signed By: <Electronically signed by Micheal Daigle MD in OV> 02/03/25 1533 DD/ 1515 TD/TT: 02/03/25 1529 Despatching And Receiving Clerk: [facility] External Provider IMG XR PROCEDURES Final Result * XR Lumbar Spine 2-3 Views (02/03/2025 2:21 PM EDT) Anatomical Region Laterality Modality Spine, L-spine Radiographic Hemalatha ging 02/03/2025 2:21 PM EDT Narrative 02/03/2025 3:35 PM EDT [address] [address] XRay Report Signed Patient: Marcelo Kay I MR#: [id number] : 2000 Acct:[id number] Age/Sex: 24 / F ADM Date: 02/03/25 Loc: HO.ED Attending Dr: Ordering Physician: Jorge oMntano Date of Service: 02/03/25 Procedure(s): XR lumbar spine 2-3V Accession Number(s): [id number] cc: [facility]; Jorge Montano EXAMINATION: XR LUMBOSACRAL SPINE CLINICAL INFORMATION: trauma COMPARISON: None available. TECHNIQUE: Three views of the lumbosacral spine. FINDINGS: There are 5 nonrib-bearing lumbar segments. Vertebral body height and alignment is preserved. Schmorl nodes are present at superior L1, L2, L3. XR/XR lumbar spine 2-3V IMPRESSION: There are Schmorl's nodes at L1, L2, L3 superior endplates . Electronically signed by: Micheal Daigle MD 02/03/2025 03:32 PM EDT RP Dictated By: Micheal Daigle MD Signed By: <Electronically signed by Micheal Daigle MD in OV> 02/03/25 1532 DD/ 1421 TD/TT: 02/03/25 1529 Despatching And Receiving Clerk: Procedure Note Donotuseinterpreter, Image - 02/03/[address] [address] XRay Report Signed Patient: Marcelo Kay IMR#: [id number] : 2000Acct:[id number] Age/Sex: M Date: 02/03/25 Loc: .ED Attending Dr: Ordering Physician: Jorge Montano Date of Service: 02/03/25 Procedure(s): XR lumbar spine 2-3V Accession Number(s): [id number] cc: [facility]; Jorge Montano EXAMINATION: XR LUMBOSACRAL SPINE CLINICAL INFORMATION: trauma COMPARISON: None available. TECHNIQUE: Three views of the lumbosacral spine. FINDINGS: There are 5 nonrib-bearing lumbar segments. Vertebral body height and alignment is preserved. Schmorl nodes are present at superior L1, L2, L3. XR/XR lumbar spine 2-3V IMPRESSION: There are Schmorl's nodes at L1, L2, L3 superior endplates . Electronically signed by: Micheal Daigle MD 02/03/2025 03:32 PM EDT RP Dictated By: Micheal Daigle MD Signed By: <Electronically signed by Micheal Daigle MD in OV> 02/03/25 1532 DD/ 1421 TD/TT: 02/03/25 1529 Despatching And Receiving Clerk: [facility] External Provider IMG XR PROCEDURES Final Result * POCT Influenza A manually resulted (01/31/2025 2:55 PM EDT) [facility] Rapid Influenza A Ag Negative Negative, Indeterminate QC Media Lot # [id number] Lot# Expiration Date 8,226 Swab Nasopharyngeal structure / Unknown 01/31/2025 2:55 PM EDT Result [facility] Marivel Sutton MD POINT OF CARE TEST ENTER/E DIT ORDERABLES Final Result * POCT Rapid COVID Ag (01/31/2025 2:54 PM EDT) Only the most recent of2 resultswithin the time period is included. [facility] Rapid COVID Ag Negative QC Media Lot # [id number] Lot# Expiration Date 102,826 Swab 01/31/2025 2:54 PM EDT Result [facility] Marivel Sutton MD POINT OF CARE TEST ENTER/E DIT ORDERABLES Final Result * POCT Influenza B manually resulted (01/31/2025 2:54 PM EDT) [facility] Rapid Influenza B Ag Negative Negative, Indeterminate QC Media Lot # [id number] Lot# Expiration Date 100,826 Swab 01/31/2025 2:54 PM EDT Marivel Sutton MD POINT OF CARE TEST ENTER/E DIT ORDERABLES Final Result * POCT rapid strep A manually resulted (01/31/2025 2:52 PM EDT) [facility] Rapid Strep A Screen Negative Negative, None Detected QC Media Lot # [id number] Lot# Expiration Date 168,661 Swab 01/31/2025 2:52 PM EDT Marivel Sutton MD POINT OF CARE TEST ENTER/E DIT ORDERABLES Final Result * Influenza B (ID NOW Rapid Molecular) (11/10/2024 3:43 PM EDT) Influenza B Negative Negative, Indeterminate [facility] Swab 11/10/2024 3:43 PM EDT Marivel Sutton MD POINT OF CARE TEST ENTER/E DIT ORDERABLES Final Result Performing Organization Address City/[facility]/ZIP Co de Phone Number [facility] [address] [place] [phone] * Influenza A (ID NOW Rapid Molecular) (11/10/2024 3:43 PM EDT) Influenza A Negative Negative, Indeterminate [facility] Swab 11/10/2024 3:43 PM EDT Marivel Sutton MD POINT OF CARE TEST ENTER/E DIT ORDERABLES Final Result Performing Organization Address [facility]/ZIP Co de Phone Number [facility] [address] [place] [phone] * Chlamydia/Gonorrhea Throat Swab ([place] DP) (05/13/2024) Chlamydia Throat Swab Negative Gonorrhea Throat Swab Negative Swab 05/13/2024 Aziza Delgado MD LAB MICROBIOLOGY - GENERA L ORDERABLES Final Result * Hepatitis C Antibody ([place] DP) (05/13/2024) Hepatitis C Ab Nonreactive Blood 05/13/2024 Historical Provider MD LAB BLOOD ORDERABLES Concha l Result * HIV Ab/Ag (ESPERANZA FLETCHER) (05/13/2024) HIV Ag/Ab Nonreactive Blood 05/13/2024 Historical Provider MD LAB BLOOD ORDERABLES Concha l Result * Lipid Panel, Standard (04/27/2024 12:45 PM EST) Triglycerides 38 <150 mg/dL [facility] Comment:Desirable Triglyceri de: less than 150 mg/dLBorderline High Triglyceride 150-199 mg/dLHigh Triglyceride: 200-499 mg/dLVery High Triglyceride: greater than or equal to 5OO mg/dL Cholesterol 136 <200 mg/dL [facility] Comment:Desirable Cholestero l: less than 200 mg/dLBorderline High Cholesterol: 200-239 mg/dLHigh Cholesterol: greater than 239 mg/dL LDL Cholesterol Calculated 78 <100 mg/dL [facility] Comment:Desirable LDL: less than 100 mg/dLNear Optimal/Above Optimal LDL: 110- 129 mg/dLBorderline High LDL: 130-159 mg/dLHigh LDL: 160-189 mg/dLVery High LDL: greater than or equal to 190 mg/dL HDL Cholesterol 51 >40 mg/dL [facility] Comment:Desirable HDL: great er than 40 mg/dL Note: This HDL assay may give artificially low results in patients with liver disease. Blood Venous blood specimen / Unknown 04/27/2024 12:45 PM EST 04/27/2024 1:22 PM EST Fawn Brooke NP LAB BLOOD ORDERABLES Final Resu lt [facility] [address] [place] [phone] from Last 3 Months or Most Recently Relevant to Health Maintenance Insurance [facility] C3 Care Teams [employer] Relationship Specialty Start Date End Date Fawn Brooke NP [address] [place] [phone] PCP - General Family Medicine 04/04/24
--- OUTSIDE RECORDS SUMMARY | 2025-02-03 15:47 | XMS_ITS | Encounter Summary ---
Author Organization [employer] Address [address] [place] [address] Care Team Providers Care Fire Control Assistant Name Role Phone Edwardo Fawn SANCHEZ Primary Care Provider [phone] Encounter Details Date Type Department Care Team ([facility] Contact Info) Description 02/03/2025 Orders Only [facility] External Provider, [facility] Social History Tobacco Use Types Packs/Day Years [...] PM EST documented as of this encounter Plan of Treatment Not on file documented as of this encounter Procedures Procedure Name Priority Date/Time Associated Diagnosis Comments XR CERVICAL SPINE 3V Routine 02/03/2025 3:15 PM EDT XR LUMBAR SPINE 2-3 VIEWS Routine 02/03/2025 2:21 PM EDT documented in this encounter Results * XR CERVICAL SPINE 3V (02/03/2025 3:15 PM EDT) Anatomical Region Laterality Modality Abdomen Radiographic Hemalatha ging 02/03/2025 3:15 PM EDT Narrative 02/03/2025 3:36 PM EDT [place] [address] XRay Report Signed Patient: Marcelo Kay I MR#: [id number] : 2000 Acct:[id number] Age/Sex: 24 / F ADM Date: 02/03/25 Loc: HO.ED Attending Dr: Ordering Physician: Jorge Montano Date of Service: 02/03/25 Procedure(s): XR cervical spine 3V Accession Number(s): [id number] cc: [facility]; Jorge Montano EXAMINATION: XR CERVICAL SPINE [...] 02/03/25 1533 DD/ 1515 TD/TT: 02/03/25 1529 Electrical Designer: Procedure Note Donotuseinterpreter, Image - 02/03/[address] [address] XRay Report Signed Patient: Marcelo Kay IMR#: [id number] : 2000Acct:[id number] Age/Sex: 24 / FADM Date: 02/03/25 Loc: .ED Attending Dr: Ordering Physician: Jorge Montano Date of Service: 02/03/25 Procedure(s): XR cervical spine 3V Accession Number(s): [id number] cc: [facility]; Jorge Montano EXAMINATION: XR CERVICAL SPINE [...] 02/03/25 1533 DD/ 1515 TD/TT: 02/03/25 1529 Electrical Designer: [facility] External Provider IMG XR PROCEDURES Final Result * XR Lumbar Spine 2-3 Views (02/03/2025 2:21 PM EDT) Anatomical Region Laterality Modality Spine, L-spine Radiographic Hemalatha ging 02/03/2025 2:21 PM EDT Narrative 02/03/2025 3:35 PM EDT [address] [address] XRay Report Signed Patient: Marcelo Kay I MR#: [id number] : 2000 Acct:[id number] Age/Sex: 24 / F ADM Date: 02/03/25 Loc: HO.ED Attending Dr: Ordering Physician: Jorge Montano Date of Service: 02/03/25 Procedure(s): XR lumbar spine 2-3V Accession Number(s): [id number] cc: [facility]; Jorge Montano EXAMINATION: XR LUMBOSACRAL SPINE [...] Micheal Daigle MD 02/03/2025 03:32 PM EDT Dictated By: Micheal Daigle MD Signed By: <Electronically signed by Micheal Daigle MD in OV> 02/03/25 1532 DD/ 1421 TD/TT: 02/03/25 1529 Electrical Designer: Procedure Note Donotuseinterpreter, Image - 02/03/[address] [address] XRay Report Signed Patient: Marcelo Kay IMR#: [id number] : 2000Acct:[id number] Age/Sex: 24 / FADM Date: 02/03/25 Loc: HO.ED Attending Dr: Ordering Physician: Jorge Montano Date of Service: 02/03/25 Procedure(s): XR lumbar spine 2-3V Accession Number(s): [id number] cc: [facility]; Jorge Montano EXAMINATION: XR LUMBOSACRAL SPINE [...] 02/03/25 1532 DD/ 1421 TD/TT: 02/03/25 1529 Electrical Designer: [facility] External Provider IMG XR PROCEDURES Final Result documented in this encounter Visit Diagnoses Not on filedocumented in this encounter Additional Health Concerns Assessment Noted Time PHQ-9 Depression Total Score: 3 04/04/20 24 2:54 PM EDT documented as of this encounter Care Teams Fire Control Assistant Relationship Specialty Start Date End Date Fawn Brooke NP [address] [place] [phone] PCP - General Family Medicine 04/04/24 documented as of this encounter
--- OUTSIDE RECORDS SUMMARY | 2025-02-03 15:47 | XMS_ITS | Encounter Summary ---
Author Organization [employer] Address [address] [place] [address] [address] [place] [address] Care Team Providers Care Tying Machine Operator Name Role Phone Fawn Brooke SANCHEZ Primary Care Provider [phone] Encounter Details Date Type Department Care Team (Latest Contact Info) Description 01/31/2025 Travel Social History Tobacco Use Types Packs/Day Years [...] on file documented as of this encounter Visit Diagnoses Not on filedocumented in this encounter Additional Health Concerns Assessment Noted Time PHQ-9 Depression Total Score: 3 04/04/20 2:54 PM EDT documented as of this encounter Care Teams Tying Machine Operator Relationship Specialty Start Date End Date Fawn Brooke NP [address] [place] [id number] PCP - General Family Medicine 04/04/24 documented as of this encounter
--- OUTSIDE RECORDS SUMMARY | 2025-02-03 15:47 | XMS_ITS | Encounter Summary ---
Author Organization [employer] Address [address] [place] [address] Care Team Providers Care Scientific Programmer Analyst Name Role Phone RenaeFawn doan SANCHEZ Primary Care Provider [phone] Reason for Visit * Reason Comments Med Refill Encounter Details Date Type Department Care Team ([facility] st Contact Info) Description 02/01/2025 Refill [facility] [address] [place] [address] [phone] Marivel Sutton MD [address] [place], [place] [phone] Seasonal allergies Social History Tobacco Use Types Packs/Day Years [...] documented as of this encounter Visit Diagnoses Diagnosis Seasonal allergies Allergic rhinitis, cause unspecified documented in this encounter Additional Health Concerns Assessment Noted Time PHQ-9 Depression Total Score: 3 04/04/20 2:54 PM EDT documented as of this encounter Care Teams Scientific Programmer Analyst Relationship Specialty Start Date End Date Fawn Brooke NP [address] [place] [id number] PCP - General Family Medicine 04/04/24 documented as of this encounter
--- OUTSIDE RECORDS SUMMARY | 2025-02-03 15:47 | XMS_ITS | Clinical Summary ---
Author Organization [facility] Address [address] [place] [address] Care Team Providers Care Psych Therapist Name Role Phone Unavailable Primary Care Provider [...] Screening: P ap Smear 2023 COVID-19 Vaccine (1 - 2023-2 5 season) 2024 Depression Screening 06/08/2024 Influenza Vaccine (#1) 2025 HIB Vaccines Aged Out No longer [...] 5 Years) and At-Risk Patients (6 to 49 Years) Aged Out No longer eligible b ased on patient's age to complete this topic RSV Immunization Patients Un kiran 20 months Aged Out No longer eligible b ased on patient's age to complete this topic Varicella Vaccines Aged Out No longer eligible based on patient's age to complete this topic
[2025-02-03 16:12] LABS: UPreg QC Valid YES
[2025-02-03 16:48] VITALS: BP 111/55; PULSE 64; RESP 16; TEMP 37; O2SAT 98
== END 2025-02-03 17:11 | disposition home or self-care (01) ==
PROVIDERS: Emergency Provider Emergency Medicine
DX: S13.4XXA Sprain of ligaments of cervical spine, initial encounter (principal); V89.2XXA Person injured in unspecified motor-vehicle accident, traffic, initial encounter; Y93.9 Activity, unspecified; Y92.9 Unspecified place or not applicable; Y99.9 Unspecified external cause status; M54.2 Cervicalgia; R51.9 Headache, unspecified
CPT/HCPCS: 70450; 72040; 72100; 72125; 81025; 99284

== ENCOUNTER → 2025-02-03 14:54 | Outpatient (BNV) | payer MEDICAID, SELFPAY | PROVIDERS: Emergency Provider Emergency Medicine; Visit Provider Radiology Diagnostic Radiology | DX: M54.2 Cervicalgia (principal); R51.9 Headache, unspecified; J32.4 Chronic pansinusitis; M54.50 Low back pain, unspecified; M51.46 Schmorl's nodes, lumbar region; V49.40XA Driver injured in collision with unspecified motor vehicles in traffic accident, initial encounter | CPT/HCPCS: 70450; 72040; 72100; 72125 ==

== ENCOUNTER 2025-03-04 16:20 | Emergency (ER) | payer MEDICAID, SELFPAY ==
[2025-03-04 16:34] VITALS: BP 110/58; PULSE 83; RESP 16; TEMP 36.3; O2SAT 99; BMI 22.3
--- NOTE | 2025-03-04 16:42 | ED_ITS ---
HPI - General Adult General Chief complaint: Skin/Abscess/Foreign Body Stated complaint: face/neck rash Time Seen by Provider: 03/04/25 18:18 Related Data Previous Rx's ?Medication ?Instructions ?Recorded penicillin V potassium 500 mg 500 mg PO BID 10 days #2 0 tabs 11/13/23 tablet phenol 1.5 %-glycerin 33 % mucosal 1 spray mucous memb prateek Q8-12H PRN 11/13/23 spray (Chloraseptic Max Sore sore throat #118 mL Throat) prednisone 20 mg tablet 40 mg (2 x 20 mg) PO DAILY 4 days 11/13/23 #8 tabs naproxen 500 mg tablet 500 mg PO BID PRN pain #14 t abs 10/07/24 diazepam 5 mg tablet (Valium) 5 mg PO TID PRN muscle s pasm #10 02/03/25 tabs ibuprofen 600 mg tablet 600 mg PO Q6H PRN pain #30 t abs 02/03/25 lidocaine 5 % topical patch 1 patch topical DAILY #30 ea 02/03/25 Allergies Allergy/AdvReac Type Severity Reaction Status Date / Time No Known Allergies Allergy Verified 03/04/25 16:35 [facility] Past Medical History Medical History Neck injury Social History Social History Patient Tobacco Use Status: Tobacco use Unknown Smoked in Last 30 Days: No Use of substances other than those prescribed or required for medical reasons: No Advance Directives: No Advance Directives Information Provided: No Physical Exam ED Vital Signs: Vital Signs - 24 hr 03/04/25 16:34 03/04/25 18:12 Temperature 97.3 F 97.8 F Pulse Rate 83 76 Respiratory Rate 16 16 Blood Pressure 110/58 L 118/63 Pulse Oximetry 99 100 Oxygen Delivery Method Room Air Room Air BMI result Body Mass Index 22.3 Course Course Course Narrative: This is a rapid medical exam performed by Jeremiah Weir NP: Additional HPI, ROS, PE not included below will be deferred to primary provider. Patient is a 24-year-old female presenting with petechial rash to face which she noted after leaving [facility] today. States it is not pruritic, denies recent vomiting or fever. Plan: labs Medical Decision Making Lab Data 03/04/25 16:58 03/04/25 16:58 Labs: Lab Results 03/04/25 Range/Units 16:58 WBC 9.2 (4.8-10.8) X10*3/uL RBC 4.20 (4.20-5.50) X10*6/uL Hgb 13.0 (12.0-16.0) g/dl Hct 38.5 (37.0-47.0) % MCV 91.7 (80.0-98.0) fL MCH 31.0 (27.0-33.0) pg MCHC 33.8 (31.0-35.0) g/dl RDW 12.8 (11.0-16.0) % Plt Count 187 (160-400) X10*3/uL MPV 11.2 (9.4-12.3) fL Immature Gran % (Auto) 0.2 (0.0-0.4) % Neut % (Auto) 72.1 (45-73) % Lymph % (Auto) 16.9 L (20-40) % [place] % (Auto) 9.5 (2-11) % Eos % (Auto) 0.9 (0-4) % Baso % (Auto) 0.4 (0-2) % Lymph # (Auto) 1.6 (1.2-4.9) X10*3/uL [place] # (Auto) 0.9 (0.1-1.2) X10*3/uL Eos # (Auto) 0.1 (0.0-0.4) X10*3/uL Baso # (Auto) 0.0 (0.0-0.2) X10*3/uL Abs Immat Gran (auto) 0.02 (0.00-0.03) X10*3/uL Absolute Neuts (auto) 6.6 (2.0-8.3) x10*3/uL Absolute Nucleated RBC 0.000 (0.0-0.012) X10*3/uL Nucleated RBC % (auto) 0.0 (0.0-0.2) /100WBC PT 12.7 H (10.9-12.4) SEC INR 1.1 (0.9-1.1) Sodium 140 (135-145) mmol/L Potassium 3.7 (3.3-5.1) mmol/L Chloride 109 H (96-108) mmol/L Carbon Dioxide 25 (22-29) mmol/L Anion Gap 10 L (12-20) BUN 14 (9-16) mg/dL Creatinine 0.63 (0.5-1.4) mg/dL Estim Creat Clear Calc 120.9 Estimated GFR > 60 Random Glucose 92 (60-115) mg/dL Calcium 9.3 (8.4-10.2) mg/dL Total Bilirubin 0.6 (0.0-1.0) mg/dL AST 22 (5-31) U/L ALT 14 (0-31) U/L Alkaline Phosphatase 52 (39-117) U/L Total Protein 7.1 (6.5-8.0) g/dL Albumin 4.3 (3.5-5.0) g/dL Discharge Plan Discharge Clinical Impression: Rash Patient Disposition: Home, Self-Care Instructions: Acute Rash (ED) Prescriptions: No Action penicillin V potassium 500 mg tablet 500 mg PO BID 10 Days Qty: 20 0RF Chloraseptic Max Sore Throat 1.5-33 % spray,non-aerosol 1 spray mucous membrane Q8-12H PRN (Reason: sore throat) Qty: 118 0RF Rx Instructions: leave on area for 15 seconds then spit out prednisone 20 mg tablet 40 mg PO DAILY 4 Days Qty: 8 0RF naproxen 500 mg tablet 500 mg PO BID PRN (Reason: pain) Qty: 14 0RF lidocaine 5 % adhesive patch,medicated 1 patch topical DAILY Qty: 30 0RF Rx Instructions: leave on most painful area for up to 12 hrs ibuprofen 600 mg tablet 600 mg PO Q6H PRN (Reason: pain) Qty: 30 0RF diazepam [Valium] 5 mg tablet 5 mg PO TID PRN (Reason: muscle spasm) Qty: 10 0RF Rx Instructions: partial fill is okay Referrals: [facility] [Outside] - 03/06/25 Print Language: Yung
[2025-03-04 17:03] LABS: MANUAL DIFF FLAG NO
[2025-03-04 17:04] LABS: Hematocrit 38.5 % (37.0-47.0); Hemoglobin 13.0 g/dl (12.0-16.0); Imm Gran Abs Auto 0.02 X10*3/uL (0.00-0.03); Imm Gran Pct Auto 0.2 % (0.0-0.4); Lymphocytes Absolute Auto 1.6 X10*3/uL (1.2-4.9); Mean Corpuscular HGB Conc 33.8 g/dl (31.0-35.0); Mean Corpuscular Hemoglobin 31.0 pg (27.0-33.0); Mean Corpuscular Volume 91.7 fL (80.0-98.0); NRBC Abs Auto 0.000 X10*3/uL (0.0-0.012); NRBC Pct Auto 0.0 /100WBC (0.0-0.2); Platelet Count 187 X10*3/uL (160-400); Red Blood Count 4.20 X10*6/uL (4.20-5.50); White Blood Count 9.2 X10*3/uL (4.8-10.8)
[2025-03-04 17:11] LABS: INTERNATIONAL NORM RATIO 1.1 (0.9-1.1); Prothrombin Time 12.7 SEC (10.9-12.4)
[2025-03-04 17:17] LABS: Alanine Aminotransferase 14 U/L (0-31); Albumin Level 4.3 g/dL (3.5-5.0); Alkaline Phosphatase 52 U/L (39-117); Anion Gap 10 (12-20); Aspartate Amino Transferase 22 U/L (5-31); Blood Urea Nitrogen 14 mg/dL (9-16); Calcium 9.3 mg/dL (8.4-10.2); Carbon Dioxide 25 mmol/L (22-29); Chloride 109 mmol/L (96-108); Creatinine Clr Calc Pharmacy 120.9; Estimated Glomerular Filt Rate > 60; Potassium 3.7 mmol/L (3.3-5.1); Sodium 140 mmol/L (135-145); Total Protein 7.1 g/dL (6.5-8.0)
--- OUTSIDE RECORDS SUMMARY | 2025-03-04 17:22 | XMS_ITS | Clinical Summary ---
Author Organization [employer] Address [address] [place] [address] [address] [place] [address] Care Team Providers Care Gasket Inspector Name Role Phone RenaeFawn doan SANCHEZ Primary Care Provider [phone] Allergies Active Allergy Reactions Criticality Noted Date Comments Pollen Extract 10/03/2022 Medications * This document contains information received from the source organization and may not represent a complete record from that organization. fluticasone (Flonase Allergy Relief) 50 MCG/ACT nasal sprayIndications:S easonal allergies Administer 1 spray into each nostril Once per day. Shake gently. Before first use, prime pump. After use, clean tip and replace cap. 16 g 1 5 026 Active Ketotifen Fumarate 0.035 % solutionIndication s:Seasonal allergies Administer 1 drop into affected eye(s) if needed in the morning and at bedtime (allergies). 10 mL 3 5 Active albuterol 108 (90 Base) MCG/ACT inhalerIndications :Mild intermittent asthma without complication Inhale 2 puffs every 4 (four) hours if needed for wheezing. 18 g 3 5 026 Active ipratropium (Atrovent) 0.03 % nasal sprayIndications:A cute URI Administer 1 spray into each nostril every 12 (twelve) hours. 30 mL 12 5 026 Active ondansetron (Zofran) 4 MG tabletIndications: Nausea and vomiting, unspecified vomiting type Take 1 tablet (4 mg) by mouth every 8 (eight) hours if needed for nausea or vomiting for up to 10 doses. 10 tablet 5 Active SUMAtriptan (Imitrex) 25 MG tabletIndications: Acute nonintractable headache, unspecified headache type Take 1 tablet (25 mg) by mouth 1 (one) time if needed for migraine for up to 9 doses. And lye down for at least 30 mins. May repeat dose once in 2 hours if no relief. Do not exceed 2 doses in 24 hours. Take with naproxen 9 tablet 5 Active cetirizine (ZyrTEC) 10 MG tabletIndications: Seasonal allergies TAKE 1 TABLET BY MOUTH ONCE DAILY 90 tablet 1 5 Active Active Problems Problem Noted Date Diagnosed Date Routine adult health maintenance 05/02/2024 Assessment & Plan (05/02/2024 8:12 PM EST): -Optometry: 2016 last exam; reports no problems -Dental: established with dental home [facility]. Last seen -11/2022 -Breast CA: not [...] Encounters Date Type Department Care Team Description 03/04/2025 Orders Only GENERIC EXTERNAL DATA DEPARTMENT Provider, Generic External Data 02/07/2025 Telephone [facility] [address] [place] [phone] Fawn Brooke NP ER Follow-up 02/03/2025 Orders Only [facility] External Provider, [facility] 02/01/2025 Refill [facility] [address] [address] Marivel Sutton MD Seasonal allergies 01/31/2025 2:20 PM EDT Office Visit [facility] [address] [address] Marivel Sutton MD Acute URI (Primary Dx) 01/31/2025 Travel 01/02/2025 5:00 PM EDT Office Visit [facility] [address] [address] Fawn Brooke NP Acute nonintractable headache, unspecified headache type (Primary Dx); Dizziness; Diarrhea, unspecified type; Nausea and vomiting, unspecified vomiting type 01/02/2025 Travel from Last 3 Months Immunizations Immunization [...] Pap Smear 2023 COVID-19 Vaccine ( season) 2025 07/24/2022, 06/04/2021, 12/03/2020, Additional history exists Influenza Vaccine (#1) 2025 SDOH Screening 03/28/2025 03/28/2024 Alcohol/Substance Use Screening 04/04/2025 04/04/2024 Depression Screening 04/04/2025 04/04/2024, 04/04/20 Chlamydia and Gonorrhea Screening 05/13/2025 05/13/2024, 05/13/2024, [...] Procedure Name Priority Date/Time Associated Diagnosis Comments COMPREHENSIVE METABOLIC PANEL Routine 03/04/2025 4:58 PM EDT PROTHROMBIN TIME-INR Routine 03/04/2025 4:58 PM EDT CBC WITH AUTO DIFFERENTIAL Routine 03/04/2025 4:58 PM EDT HCG, QL, URINE Routine 02/03/2025 4:01 PM EDT XR CERVICAL SPINE 3V Routine 02/03/2025 3:[address] CERVICAL SPINE WO CONTRAST Routine 02/03/2025 2:[address] HEAD WO CONTRAST Routine 02/03/2025 2 :26 PM EDT XR LUMBAR SPINE 2-3 VIEWS Routine 02/03/2025 2:21 PM EDT POCT INFLUENZA A Routine 01/31/2025 2:55 PM EDT Acute URI POCT RAPID COVID ANTIGEN Routine 01/31/2025 2:54 PM EDT Acute URI POCT INFLUENZA B Routine 01/31/2025 2:54 PM EDT Acute URI POCT RAPID STREP A Routine 01/31/2025 2: 52 PM EDT Acute URI HEPATITIS C ANTIBODY ([facility]) Routine 05/13/2024 HIV ANTIBODY/ANTIGEN ([facility]) Routine 05/13/2024 CHLAMYDIA/GONORRHEA THROAT SWAB ([facility]) Routine 05/13/2024 LIPID PANEL, STANDARD Routine 04/27/2024 12:45 PM EST Encounter for health-related screening PANORAMIC RADIOGRAPHIC IMAGE Routine 10/03/2022 9:30 AM EDT from Last 3 Months or Most Recently Relevant to Health Maintenance Results * (ABNORMAL) CBC auto differential (03/04/2025 4:58 PM EDT) Pathologist [facility] White Blood Count 9.2 4.8 - 10.8 X10*3/uL [facility] Red Blood Count 4.20 4.20 - 5.50 X10*6/uL [facility] Hemoglobin 13.0 12.0 - 16.0 g/dl [facility] Hematocrit 38.5 37.0 - 47.0 % [facility] Mean Corpuscular Volume 91.7 80.0 - 98.0 fL [facility] Mean Corpuscular Hemoglobin 31.0 27.0 - 33.0 pg [facility] Mean Corpuscular HGB Conc 33.8 31.0 - 35.0 g/dl [facility] Red Cell Distribution Width 12.8 11.0 - 16.0 % [facility] Platelet Count 187 160 - 400 X10*3/uL [facility] Mean Platelet Volume 11.2 9.4 - 12.3 fL [facility] Neutrophils Percent Auto 72.1 45 - 73 % [facility] Imm Gran Pct Auto 0.2 0.0 - 0.4 % [facility] Lymphocytes Percent Auto 16.9(L) 20 - 40 % [facility] Monocytes Percent Auto 9.5 2 - 11 % [facility] Eosinophils Percent Auto 0.9 0 - 4 % [facility] Basophils Percent Auto 0.4 0 - 2 % [facility] NRBC Pct Auto 0.0 0.0 - 0.2 /100WBC [facility] Neutrophils Absolute Auto 6.6 2.0 - 8.3 x10*3/uL [facility] Imm Gran Abs Auto 0.02 0.00 - 0.03 X10*3/uL [facility] Lymphocytes Absolute Auto 1.6 1.2 - 4.9 X10*3/uL [facility] Monocytes Absolute Auto 0.9 0.1 - 1.2 X10*3/uL [facility] Eosinophils Absolute Auto 0.1 0.0 - 0.4 X10*3/uL [facility] Basophils Absolute Auto 0.0 0.0 - 0.2 X10*3/uL [facility] NRBC Abs Auto 0.000 0.0 - 0.012 X10*3/uL [facility] 03/04/2025 4:58 PM EDT 03/04/2025 5:01 PM EDT Generic External Data Provider LAB BLOOD ORDERAB LES Final Result Performing Organization Address [facility] Co de Phone Number [facility] [address] [place] [phone] * (ABNORMAL) Prothrombin Time-INR (03/04/2025 4:58 PM EDT) Prothrombin Time 12.7(H) 10.9 - 12.4 SEC [facility] INTERNATIONAL NORM RATIO 1.1 0.9 - 1.1 [facility] Comment:INTERNATIONAL NORMAL IZED RATIO (INR) REFERENCE RANGES Reference RangeFor patients not on anticoagulant therapy: 0.9 - 1.1INR ranges for oral anticoagulanttherapy:For prevention and treatment of venous thrombosis and pulmonary embolism: 2.0 - 3.0For acute myocardial infarction with aspirin therapy: 2.0 - 3.0For acute myocardial infarction without aspirin therapy: 3.0 - 4.0For patients with mechanical prosthetic heart valves: 2.5 - 3.5 03/04/2025 4:58 PM EDT 03/04/2025 5:01 PM EDT Generic External Data Provider LAB BLOOD ORDERAB LES Final Result Performing Organization Address [facility] Co de Phone Number [facility] [address] [place] [phone] * (ABNORMAL) Comprehensive Metabolic Panel (03/04/2025 4:58 PM EDT) Sodium 140 135 - 145 mmol/L [facility] Potassium 3.7 3.3 - 5.1 mmol/L [facility] Chloride 109(H) 96 - 108 mmol/L [facility] Carbon Dioxide 25 22 - 29 mmol/L [facility] Anion Gap 10(L) 12 - 20 [facility] Urea Nitrogen (BUN) 14 9 - 16 mg/dL [facility] Creatinine, Serum 0.63 0.5 - 1.4 mg/dL [facility] Creatinine Clr Calc Pharmacy 120.9 [facility] Comment:Provided height and weight: 162.56 cm,58.967 kg.eGFR (calculated from the MDRD study equation) and eCrCl(calculated from the Cockcroft-Gault equation) are based ondifferent parameters and may not yield comparable results.If eCrCl result is absurd, please check patient'sheight/weight. Estimated Glomerular Filt Rate >60 [facility] Comment:Chronic Kidney Disea se: Estimated GFR < 60 mL/min/1.02l2Vsxayz Kidney Disease: Estimated GFR < 15 mL/min/1.73m2 Glucose 92 60 - 115 mg/dL [facility] Calcium 9.3 8.4 - 10.2 mg/dL [facility] Bilirubin, Total 0.6 0.0 - 1.0 mg/dL [facility] Aspartate Amino Transferase 22 5 - 31 U/L [facility] Alanine Aminotransferase 14 0 - 31 U/L [facility] Total Protein 7.1 6.5 - 8.0 g/dL [facility] Albumin Level 4.3 3.5 - 5.0 g/dL [facility] Alkaline Phosphatase 52 39 - 117 U/L [facility] 03/04/2025 4:58 PM EDT 03/04/2025 5:01 PM EDT us Generic External Data Provider LAB BLOOD ORDERAB LES Final Result [facility] [address] [place] [phone] * HCG, Qualitative, Urine (02/03/2025 4:01 PM EDT) Urine NEGATIVE NEGATIVE [facility] Comment:This test was develo ped to detect early . Falsenegative results may occur after the 5th - 7th week ofpregnancy when using this test method. If clinicallyindicated, consider a serum hCG. 02/03/2025 4:01 PM EDT 02/03/2025 4:06 PM EDT us Generic External Data Provider LAB URINE ORDERAB LES Final Result Performing Organization Address City/State/[facility] Co de Phone Number [facility] [address] [place] [phone] * XR CERVICAL SPINE 3V (02/03/2025 3:15 PM EDT) Anatomical Region Laterality Modality Abdomen Radiographic Hemalatha ging 02/03/2025 3:15 PM EDT Narrative 02/03/2025 3:36 PM EDT [address] [address] XRay Report Signed Patient: Marcelo Kay I MR#: [id number] 0125 : 2000 Acct:[id number] Age/Sex: 24 / F ADM Date: 02/03/25 Loc: .ED Attending Dr: Ordering Physician: Jorge Montano Date of Service: 02/03/25 Procedure(s): XR cervical spine 3V Accession Number(s): [id number] cc: [facility]; Jorge Montano EXAMINATION: XR CERVICAL SPINE [...] 02/03/25 1533 DD/ 1515 TD/TT: 02/03/25 1529 Granite Polisher: Procedure Note Donotuseinterpreter, Image - 02/03/[address] [address] XRay Report Signed Patient: Marcelo Kay [facility]#: [id number] : 2000Acct:[id number] Age/Sex: 24 / FADM Date: 02/03/25 Loc: HO.ED Attending Dr: Ordering Physician: Jorge Montano Date of Service: 02/03/25 Procedure(s): XR cervical spine 3V Accession Number(s): [id number] cc: [facility]; Jorge Montano EXAMINATION: XR CERVICAL SPINE [...] 02/03/25 1533 DD/ 1515 TD/TT: 02/03/25 1529 Granite Polisher: us [facility] External Provider IMG XR PROCEDURES Final Result * CT Cervical Spine w/o Contrast (02/03/2025 2:26 PM EDT) Anatomical Region Laterality Modality Spine, C-spine Computed Tomogra phy 02/03/2025 2:26 PM EDT Narrative 02/03/2025 4:04 PM EDT [address] [address] [address] Scan Report Signed Patient: Marcelo Kay I MR#: [id number] 0125 : 2000 Acct:[id number] Age/Sex: 24 / F ADM Date: 02/03/25 Loc: HO.ED Attending Dr: Ordering Physician: Jorge Montano Date of Service: 02/03/25 Procedure(s): CT cervical spine wo IV con Accession Number(s): [id number] cc: [facility]; Jorge Montano Report Number: [id number]: Total DLP = 902.00 mGy-cm EXAMINATION: CT CERVICAL SPINE WITHOUT CONTRAST CLINICAL INFORMATION: Trauma COMPARISON: None available. TECHNIQUE: Spiral CT imaging of the cervical spine performed in axial plane without contrast. Multiplanar reformatted images were constructed from the axial data set. This CT examination was performed using dose optimization techniques as appropriate, variously including the following: *Automated exposure control *Adjustment of mA and/or kV according to patient size (this includes techniques or standardized protocols for targeted exams where dose is matched to indication/reason for exam; i.e. extremities or head) *Use of iterative reconstruction technique FINDINGS: CORONAL ALIGNMENT: -Normal. SAGITTAL ALIGNMENT: -Mild reversal of the normal lordosis centered at C4. No traumatic subluxation. C1-C2 AND CRANIOCERVICAL JUNCTION: -Intact and aligned normally. VERTEBRAL BODIES AND FACETS: -No fracture, compression deformity, or suspicious bone lesion. -No traumatic subluxations. -Normal facet alignment bilaterally. DISCS: -Preserved throughout. CENTRAL CANAL: -No evidence of high-grade central canal narrowing or large disc herniation allowing for modality limitations. PREVERTEBRAL AND PARAVERTEBRAL SOFT TISSUES: -No prevertebral or paravertebral soft tissue swelling or abnormality. No abnormal fluid collection. -Normal thyroid. LUNG APICES: -Clear bilaterally. CT/CT cervical spine wo IV con IMPRESSION: 1. No CT evidence of acute cervical spine fracture or injury. Electronically signed by: Nik Arriaga MD 02/03/2025 04:01 PM EDT Dictated By: Nik Arriaga MD Signed By: <Electronically signed by Nik Arriaga MD in OV> 02/03/25 1601 DD/ 1426 TD/TT: 02/03/25 1543 Granite Polisher: Procedure Note Donotuseinterpreter, Image - 02/03/[address] [address] [address] Scan Report Signed Patient: Marcelo Kay IMR#: [id number] 0125 : 2000Acct:[id number] Age/Sex: 24 / FADM Date: 02/03/25 Loc: HO.ED Attending Dr: Ordering Physician: Jorge Montano Date of Service: 02/03/25 Procedure(s): CT cervical spine wo IV con Accession Number(s): [id number] cc: [facility]; Jorge Montano Report Number: [id number]: Total DLP = 902.00 mGy-cm EXAMINATION: CT CERVICAL SPINE WITHOUT CONTRAST CLINICAL INFORMATION: Trauma COMPARISON: None available. TECHNIQUE: Spiral CT imaging of the cervical spine performed in axial plane without contrast. Multiplanar reformatted images were constructed from the axial data set. This CT examination was performed using dose optimization techniques as appropriate, variously including the following: *Automated exposure control *Adjustment of mA and/or kV according to patient size (this includes techniques or standardized protocols for targeted exams where dose is matched to indication/reason for exam; i.e. extremities or head) *Use of iterative reconstruction technique FINDINGS: CORONAL ALIGNMENT: -Normal. SAGITTAL ALIGNMENT: -Mild reversal of the normal lordosis centered at C4. No traumatic subluxation. C1-C2 AND CRANIOCERVICAL JUNCTION: -Intact and aligned normally. VERTEBRAL BODIES AND FACETS: -No fracture, compression deformity, or suspicious bone lesion. -No traumatic subluxations. -Normal facet alignment bilaterally. DISCS: -Preserved throughout. CENTRAL CANAL: -No evidence of high-grade central canal narrowing or large disc herniation allowing for modality limitations. PREVERTEBRAL AND PARAVERTEBRAL SOFT TISSUES: -No prevertebral or paravertebral soft tissue swelling or abnormality. No abnormal fluid collection. -Normal thyroid. LUNG APICES: -Clear bilaterally. CT/CT cervical spine wo IV con IMPRESSION: 1. No CT evidence of acute cervical spine fracture or injury. Electronically signed by: Nik Arriaga MD 02/03/2025 04:01 PM EDT Dictated By: Nik Arriaga MD Signed By: <Electronically signed by Nik Arriaga MD in OV> 02/03/25 1601 DD/ 1426 TD/TT: 02/03/25 1543 Granite Polisher: [facility] External Provider IMG CT PROCEDURES Final Result * CT Head w/o Contrast (02/03/2025 2:26 PM EDT) Anatomical Region Laterality Modality Head, Neck Computed Tomogra phy 02/03/2025 2:26 PM EDT Narrative 02/03/2025 3:55 PM EDT [address] [address] [address] Scan Report Signed Patient: Marcelo Kay I MR#: [id number] 0125 : 2000 Acct:[id number] Age/Sex: 24 / F ADM Date: 02/03/25 Loc: HO.ED Attending Dr: Ordering Physician: Jroge Montano Date of Service: 02/03/25 Procedure(s): CT head/brain wo IV con Accession Number(s): [id number] cc: [facility]; Jorge Montano Report Number: [id number]: Total DLP = 902.00 mGy-cm EXAMINATION: CT HEAD WITHOUT CONTRAST CLINICAL INFORMATION: Trauma COMPARISON: October 07, 2024 TECHNIQUE: Contiguous axial imaging was performed from the skull base to vertex without intravenous administration of contrast. This CT examination was performed using dose optimization techniques as appropriate, variously including the following: *Automated exposure control *Adjustment of mA and/or kV according to patient size (this includes techniques or standardized protocols for targeted exams where dose is matched to indication/reason for exam; i.e. extremities or head) *Use of iterative reconstruction technique DLP: 902 mGY*cm FINDINGS: There is no acute ischemic change. There is no intracranial hemorrhage. There is no mass-effect or midline shift. Basal cisterns and ventricles are within normal limits for age/cerebral volume. Orbits are symmetrical and unremarkable. There is mucosal thickening in the paranasal sinuses, sparing the frontal sinuses. There are no bony abnormalities. CT/CT head/brain wo IV con IMPRESSION: No acute intracranial abnormality. Pansinusitis. Frontal sinuses are not involved Electronically signed by: Micheal Daigle MD 02/03/2025 03:52 PM EDT RP Dictated By: Micheal Daigle MD Signed By: <Electronically signed by Micheal Daigle MD in OV> 02/03/25 1552 DD/ 1426 TD/TT: 02/03/25 1543 Granite Polisher: Procedure Note Donotuseinterpreter, Image - 02/03/[address] [place] [address] [address] Scan Report Signed Patient: Marcelo Kay IMR#: [id number] 0125 : 2000Acct:[id number] Age/Sex: 24 / FADM Date: 02/03/25 Loc: HO.ED Attending Dr: Ordering Physician: Jorge Montano Date of Service: 02/03/25 Procedure(s): CT head/brain wo IV con Accession Number(s): [id number] cc: [facility]; Jorge Montano Report Number: [id number]: Total DLP = 902.00 mGy-cm EXAMINATION: CT HEAD WITHOUT CONTRAST CLINICAL INFORMATION: Trauma COMPARISON: October 07, 2024 TECHNIQUE: Contiguous axial imaging was performed from the skull base to vertex without intravenous administration of contrast. This CT examination was performed using dose optimization techniques as appropriate, variously including the following: *Automated exposure control *Adjustment of mA and/or kV according to patient size (this includes techniques or standardized protocols for targeted exams where dose is matched to indication/reason for exam; i.e. extremities or head) *Use of iterative reconstruction technique DLP: 902 mGY*cm FINDINGS: There is no acute ischemic change. There is no intracranial hemorrhage. There is no mass-effect or midline shift. Basal cisterns and ventricles are within normal limits for age/cerebral volume. Orbits are symmetrical and unremarkable. There is mucosal thickening in the paranasal sinuses, sparing the frontal sinuses. There are no bony abnormalities. CT/CT head/brain wo IV con IMPRESSION: No acute intracranial abnormality. Pansinusitis. Frontal sinuses are not involved Electronically signed by: Micheal Daigle MD 02/03/2025 03:52 PM EDT RP Dictated By: Micheal Daigle MD Signed By: <Electronically signed by Micheal Daigle MD in OV> 02/03/25 1552 DD/ 1426 TD/TT: 02/03/25 1543 Granite Polisher: [facility] External Provider IMG CT PROCEDURES Final Result * XR Lumbar Spine 2-3 Views (02/03/2025 2:21 PM EDT) Anatomical Region Laterality Modality Spine, L-spine Radiographic Hemalatha ging 02/03/2025 2:21 PM EDT Narrative 02/03/2025 3:35 PM EDT [address] [address] XRay Report Signed Patient: Marcelo Kay I MR#: [id number] 0125 : 2000 Acct:[id number] Age/Sex: 24 / F ADM Date: 02/03/25 Loc: .ED Attending Dr: Ordering Physician: Jorge Montano Date of Service: 02/03/25 Procedure(s): XR lumbar spine 2-3V Accession Number(s): [id number] cc: [facility]; Jorge Montano EXAMINATION: XR LUMBOSACRAL SPINE [...] 02/03/25 1532 DD/ 1421 TD/TT: 02/03/25 1529 Granite Polisher: Procedure Note Donotuseinterpreter, Image - 02/03/[address] [address] XRay Report Signed Patient: Marcelo Kay IMR#: [id number] : 2000Acct:[id number] Age/Sex: 24 / FADM Date: 02/03/25 Loc: .ED Attending Dr: Ordering Physician: Jorge Montano Date of Service: 02/03/25 Procedure(s): XR lumbar spine 2-3V Accession Number(s): [id number] cc: [facility]; Jorge Montano EXAMINATION: XR LUMBOSACRAL SPINE [...] 02/03/25 1532 DD/ 1421 TD/TT: 02/03/25 1529 Granite Polisher: [facility] External Provider IMG XR PROCEDURES Final Result * POCT Influenza A manually resulted (01/31/2025 2:55 PM EDT) [facility] Rapid Influenza A Ag Negative Negative, Indeterminate QC Media Lot # [id number] Lot# Expiration Date 8,226 Swab Nasopharyngeal structure / Unknown 01/31/2025 2:55 PM EDT Result [facility] us Marivel Sutton MD POINT OF CARE TEST ENTER/E DIT ORDERABLES Final Result * POCT Rapid COVID Ag (01/31/2025 2:54 PM EDT) [facility] Rapid COVID Ag Negative QC Media Lot # [id number] Lot# Expiration Date 102,826 Swab 01/31/2025 2:54 PM EDT Result [facility] us Marivel Sutton MD POINT OF CARE TEST ENTER/E DIT ORDERABLES Final Result * POCT Influenza B manually resulted (01/31/2025 2:54 PM EDT) [facility] Rapid Influenza B Ag Negative Negative, Indeterminate QC Media Lot # [id number] Lot# Expiration Date 100,826 Swab 01/31/2025 2:54 PM EDT Result [facility] us Marivel Sutton MD POINT OF CARE TEST ENTER/E DIT ORDERABLES Final Result * POCT rapid strep A manually resulted (01/31/2025 2:52 PM EDT) [facility] Rapid Strep A Screen Negative Negative, None Detected QC Media Lot # [id number] Lot# Expiration Date 130,526 Swab 01/31/2025 2:52 PM EDT Result [facility] us Marivel Sutton MD POINT OF CARE TEST ENTER/E DIT ORDERABLES Final Result * Chlamydia/Gonorrhea Throat Swab ([place] [facility]) (05/13/2024) [facility] Chlamydia Throat Swab Negative Gonorrhea Throat Swab Negative Swab 05/13/2024 Historical Provider LAB MICROBIOLOGY - GENERA L ORDERABLES Final Result * Hepatitis C Antibody ([facility]) (05/13/2024) Hepatitis C Ab Nonreactive Blood 05/13/2024 Historical Provider LAB BLOOD ORDERABLES Concha l Result * HIV Ab/Ag ([facility]) (05/13/2024) HIV Ag/Ab Nonreactive Blood 05/13/2024 Historical Provider LAB BLOOD ORDERABLES Concha l Result * Lipid Panel, Standard (04/27/2024 12:45 PM EST) Triglycerides 38 <150 mg/dL [facility] Comment:Desirable Triglyceri de: less than 150 mg/dLBorderline High Triglyceride 150-199 mg/dLHigh Triglyceride: 200-499 mg/dLVery High Triglyceride: greater than or equal to 5OO mg/dL Cholesterol 136 <200 mg/dL [facility] Comment:Desirable Cholestero l: less than 200 mg/dLBorderline High Cholesterol: 200-239 mg/dLHigh Cholesterol: greater than 239 mg/dL LDL Cholesterol Calculated 78 <100 mg/dL [facility] Comment:Desirable LDL: less than 100 mg/dLNear Optimal/Above Optimal LDL: 110- 129 mg/dLBorderline High LDL: 130-159 mg/dLHigh LDL: 160-189 mg/dLVery High LDL: greater than or equal to 190 mg/dL HDL Cholesterol 51 >40 mg/dL [facility] Comment:Desirable HDL: great er than 40 mg/dL Note: This HDL assay may give artificially low results in patients with liver disease. Blood Venous blood specimen / Unknown 04/27/2024 12:45 PM EST 04/27/2024 1:22 PM EST Fawn Appram BREAKFAST BAR ATTENDANT LAB BLOOD ORDERABLES Final Resu lt [facility] [address] [place] [address] [phone] from Last 3 Months or Most Recently Relevant to Health Maintenance Insurance [facility] C3 Care Teams Gasket Inspector Relationship Specialty Start Date End Date Fawn Brooke NP [address] [place] [id number] PCP - General Family Medicine 04/04/24
--- OUTSIDE RECORDS SUMMARY | 2025-03-04 17:22 | XMS_ITS | Clinical Summary ---
Author Organization [facility] [facility] ity Address [address] [place] [address] Care Team Providers Care Event Producer Name Role Phone Unavailable Primary Care Provider [...] Cervical Cancer Screening: P ap Smear 2023 Depression Screening 06/08/2024 COVID-19 Vaccine (1 - 2023-2 5 season) 2025 Influenza Vaccine (#1) 2025 HIB Vaccines Aged [...]
--- OUTSIDE RECORDS SUMMARY | 2025-03-04 17:23 | XMS_ITS | Encounter Summary ---
Author Organization [employer] Address [address] [address] [place] [address] Care Team Providers Care Claims Representative Name Role Phone RenaeFawn doan SANCHEZ Primary Care Provider [phone] Encounter Details Date Type Department Care Team ([facility] Contact Info) Description 03/04/2025 Orders Only GENERIC EXTERNAL DATA DEPARTMENT Provider, Generic External Data Social History Tobacco Use Types Packs/Day Years [...] Procedure Name Priority Date/Time Associated Diagnosis Comments CBC WITH AUTO DIFFERENTIAL Routine 03/04/2025 4:58 PM EDT PROTHROMBIN TIME-INR Routine 03/04/2025 4:58 PM EDT COMPREHENSIVE METABOLIC PANEL Routine 03/04/2025 4:58 PM EDT documented in this encounter Results * (ABNORMAL) Comprehensive Metabolic Panel (03/04/2025 4:58 PM EDT) Sodium 140 135 - 145 mmol/L [facility] Potassium 3.7 3.3 - 5.1 mmol/L [facility] Chloride 109(H) 96 - 108 mmol/L [facility] Carbon Dioxide 25 22 - 29 mmol/L [facility] Anion Gap 10(L) 12 - 20 [facility] Urea Nitrogen (BUN) 14 9 - 16 mg/dL [facility] Creatinine, Serum 0.63 0.5 - 1.4 mg/dL [facility] Creatinine Clr Calc Pharmacy 120.9 [facility] Comment:Provided height and weight: 162.56 cm,58.967 kg.eGFR (calculated from the MDRD study equation) and eCrCl(calculated from the Cockcroft-Gault equation) are based ondifferent parameters and may not yield comparable results.If eCrCl result is absurd, please check patient'sheight/weight. Estimated Glomerular Filt Rate >60 [facility] Comment:Chronic Kidney Disea se: Estimated GFR < 60 mL/min/[id number] Kidney Disease: Estimated GFR < 15 mL/min/1.73m2 Glucose 92 60 - 115 mg/dL [facility] Calcium 9.3 8.4 - 10.2 mg/dL [facility] Bilirubin, Total 0.6 0.0 - 1.0 mg/dL [facility] Aspartate Amino Transferase 22 5 - 31 U/L [facility] Alanine Aminotransferase 14 0 - 31 U/L [facility] Total Protein 7.1 6.5 - 8.0 g/dL [facility] Albumin Level 4.3 3.5 - 5.0 g/dL [facility] Alkaline Phosphatase 52 39 - 117 U/L [facility] 03/04/2025 4:58 PM EDT 03/04/2025 5:01 PM EDT us Generic External Data Provider LAB BLOOD ORDERAB LES Final Result Performing Organization Address City/State/[facility] Co de Phone Number [facility] [address] [place] [phone] * (ABNORMAL) Prothrombin Time-INR (03/04/2025 4:58 PM EDT) Prothrombin Time 12.7(H) 10.9 - 12.4 SEC [facility] INTERNATIONAL NORM RATIO 1.1 0.9 - 1.1 [facility] Comment:INTERNATIONAL NORMAL IZED RATIO (INR) REFERENCE [...] Provider LAB BLOOD ORDERAB LES Final Result [facility] [address], [place] [phone] * (ABNORMAL) CBC auto differential (03/04/2025 4:58 PM EDT) White Blood Count 9.2 4.8 - 10.8 X10*3/uL [facility] Red Blood Count 4.20 4.20 - 5.50 X10*6/uL [facility] Hemoglobin 13.0 12.0 - 16.0 g/dl [facility] Hematocrit 38.5 37.0 - 47.0 % [facility] Mean Corpuscular Volume 91.7 80.0 - 98.0 fL [facility] Mean Corpuscular Hemoglobin 31.0 27.0 - 33.0 pg [facility] Mean Corpuscular HGB Conc 33.8 31.0 - 35.0 g/dl [facility] Red Cell Distribution Width 12.8 11.0 - 16.0 % [facility] Platelet Count 187 160 - 400 X10*3/uL [facility] Mean Platelet Volume 11.2 9.4 - 12.3 fL [facility] Neutrophils Percent Auto 72.1 45 - 73 % [facility] Imm Gran Pct Auto 0.2 0.0 - 0.4 % [facility] Lymphocytes Percent Auto 16.9(L) 20 - 40 % [facility] Monocytes Percent Auto 9.5 2 - 11 % [facility] Eosinophils Percent Auto 0.9 0 - 4 % [facility] Basophils Percent Auto 0.4 0 - 2 % [facility] NRBC Pct Auto 0.0 0.0 - 0.2 /100WBC [facility] Neutrophils Absolute Auto 6.6 2.0 - 8.3 x10*3/uL [facility] Imm Gran Abs Auto 0.02 0.00 - 0.03 X10*3/uL [facility] Lymphocytes Absolute Auto 1.6 1.2 - 4.9 X10*3/uL [facility] Monocytes Absolute Auto 0.9 0.1 - 1.2 X10*3/uL [facility] Eosinophils Absolute Auto 0.1 0.0 - 0.4 X10*3/uL [facility] Basophils Absolute Auto 0.0 0.0 - 0.2 X10*3/uL [facility] NRBC Abs Auto 0.000 0.0 - 0.012 X10*3/uL [facility] 03/04/2025 4:58 PM EDT 03/04/2025 5:01 PM EDT us Generic External Data Provider LAB BLOOD ORDERAB LES Final Result [facility] [address] [place] [phone] documented in this encounter Visit Diagnoses Not on filedocumented in this encounter Additional Health Concerns Assessment Noted Time PHQ-9 Depression Total Score: 3 04/04/20 2:54 PM EDT documented as of this encounter Care Teams Claims Representative Relationship Specialty Start Date End Date Fawn Brooke NP [address] [place] [phone] PCP - General Family Medicine 04/04/24 documented as of this encounter
[2025-03-04 18:12] VITALS: BP 118/63; PULSE 76; RESP 16; TEMP 36.6; O2SAT 100
--- NOTE | 2025-03-04 18:38 | ED_ITS ---
HPI - Skin/Abscess/Foreign Bdy General Chief complaint: Skin/Abscess/Foreign Body Stated complaint: face/neck rash Time Seen by Provider: 03/04/25 18:18 History of Present Illness HPI narrative: Patient is a 24-year-old female presents today with having a rash to the face into the neck. There is no shortness of breath. There is no chest pain. There is no systemic complaints. Patient is from home. There is no new food there is no new medication no new lotion. No change in her environment. No change in voice. No difficulty breathing. No difficulty swallowing. Rash came on today. No neck pain. No fever. No headache. No other symptoms. Related Data Previous Rx's ?Medication ?Instructions ?Recorded penicillin V potassium 500 mg 500 mg PO BID 10 days #2 0 tabs 11/13/23 tablet phenol 1.5 %-glycerin 33 % mucosal 1 spray mucous memb prateek Q8-12H PRN 11/13/23 spray (Chloraseptic Max Sore sore throat #118 mL Throat) prednisone 20 mg tablet 40 mg (2 x 20 mg) PO DAILY 4 days 11/13/23 #8 tabs naproxen 500 mg tablet 500 mg PO BID PRN pain #14 t abs 10/07/24 diazepam 5 mg tablet (Valium) 5 mg PO TID PRN muscle s pasm #10 02/03/25 tabs ibuprofen 600 mg tablet 600 mg PO Q6H PRN pain #30 t abs 02/03/25 lidocaine 5 % topical patch 1 patch topical DAILY #30 ea 02/03/25 Allergies Allergy/AdvReac Type Severity Reaction Status Date / Time No Known Allergies Allergy Verified 03/04/25 16:35 Review of Systems 2 Review of Systems: No chest pain no neck pain no fever no systemic complaints Yes all other systems are reviewed and are negative PMFSH Past Medical History Attestation statement: The following information was validated with the patient. Medical History Neck injury Social History Social History Patient Tobacco Use Status: Tobacco use Unknown Smoked in Last 30 Days: No Use of substances other than those prescribed or required for medical reasons: No Advance Directives: No Advance Directives Information Provided: No Physical Exam 2 Exam: Exam: Appearance: Alert. Oriented X3. No acute distress. Eyes: Pupils equal, round and reactive to light. ENT: Pharynx normal. No mucosal membrane involvement. No midface tenderness. Neck: Normal inspection. Neck supple. No lymph nodes noted. No crepitus. No nuchal rigidity noted CVS: Normal heart rate and rhythm. Pulses normal. Normal S1 and S2 Respiratory: No respiratory distress. Breath sounds normal. No Wheezing. No rales Abdomen: Soft and nontender. No rigidity. No distention. good BS x4 Skin: Skin warm and dry. Normal skin color. There is a fine petechial type rash over bilateral face. There is no mucosal membrane involvement each 1 of the rash is proximally 1 mm in size is not raised. It is not tender. Not pruritic. Extremities: No lower extremity edema. Neurovascular intact to all extremities. No Lacerations. No Rash Neuro: Oriented X 3. No motor deficit. No sensory deficit. Moving all extermities. No slurred speech Vital Signs: Vital Signs: Last Vital Signs Temp 97.8 F 03/04/25 18:12 Pulse 76 03/04/25 18:12 Resp 16 03/04/25 18:12 BP 118/63 03/04/25 18:12 Pulse Ox 100 03/04/25 18:12 O2 Del Method Room Air 03/04/25 18:12 BMI result Body Mass Index 22.3 Medical Decision Making Medical Decision Making [facility] Narrative: History not consistent with meningitis but patient had question petechial rash over the face but looks extremely well normal temperature no headache no meningeal sign doubt this is secondary to meningitis patient's white count is normal patient's electrolytes are normal there is no significant shift. Patient has a normal platelet count. INR is normal. LFTs are normal no liver abnormality. Elected to ask patient to closely monitor no additional treatment at this time. Will have patient follow-up with Dermatology on an outpatient basis Differential Diagnosis Differential Diagnoses: The differential diagnosis associated with the presentation includes Admission/Observation Consideration of admission/observation: Escalation of care including admission/observation considered Lab Data [facility] Lab Attestation statement: I reviewed the patient's lab results. 03/04/25 16:58 03/04/25 16:58 Labs: Lab Results 03/04/25 Range/Units 16:58 WBC 9.2 (4.8-10.8) X10*3/uL RBC 4.20 (4.20-5.50) X10*6/uL Hgb 13.0 (12.0-16.0) g/dl Hct 38.5 (37.0-47.0) % MCV 91.7 (80.0-98.0) fL MCH 31.0 (27.0-33.0) pg MCHC 33.8 (31.0-35.0) g/dl RDW 12.8 (11.0-16.0) % Plt Count 187 (160-400) X10*3/uL MPV 11.2 (9.4-12.3) fL Immature Gran % (Auto) 0.2 (0.0-0.4) % Neut % (Auto) 72.1 (45-73) % Lymph % (Auto) 16.9 L (20-40) % [place] % (Auto) 9.5 (2-11) % Eos % (Auto) 0.9 (0-4) % Baso % (Auto) 0.4 (0-2) % Lymph # (Auto) 1.6 (1.2-4.9) X10*3/uL [place] # (Auto) 0.9 (0.1-1.2) X10*3/uL Eos # (Auto) 0.1 (0.0-0.4) X10*3/uL Baso # (Auto) 0.0 (0.0-0.2) X10*3/uL Abs Immat Gran (auto) 0.02 (0.00-0.03) X10*3/uL Absolute Neuts (auto) 6.6 (2.0-8.3) x10*3/uL Absolute Nucleated RBC 0.000 (0.0-0.012) X10*3/uL Nucleated RBC % (auto) 0.0 (0.0-0.2) /100WBC PT 12.7 H (10.9-12.4) SEC INR 1.1 (0.9-1.1) Sodium 140 (135-145) mmol/L Potassium 3.7 (3.3-5.1) mmol/L Chloride 109 H (96-108) mmol/L Carbon Dioxide 25 (22-29) mmol/L Anion Gap 10 L (12-20) BUN 14 (9-16) mg/dL Creatinine 0.63 (0.5-1.4) mg/dL Estim Creat Clear Calc 120.9 Estimated GFR > 60 Random Glucose 92 (60-115) mg/dL Calcium 9.3 (8.4-10.2) mg/dL Total Bilirubin 0.6 (0.0-1.0) mg/dL AST 22 (5-31) U/L ALT 14 (0-31) U/L Alkaline Phosphatase 52 (39-117) U/L Total Protein 7.1 (6.5-8.0) g/dL Albumin 4.3 (3.5-5.0) g/dL Social Determinants Patient?s care significantly limited by Social Determinants of Health including: Problems related to primary support group Discharge Plan Discharge Clinical Impression: Rash Patient Disposition: Home, Self-Care Instructions: Acute Rash (ED) Prescriptions: No Action penicillin V potassium 500 mg tablet 500 mg PO BID 10 Days Qty: 20 0RF Chloraseptic Max Sore Throat 1.5-33 % spray,non-aerosol 1 spray mucous membrane Q8-12H PRN (Reason: sore throat) Qty: 118 0RF Rx Instructions: leave on area for 15 seconds then spit out prednisone 20 mg tablet 40 mg PO DAILY 4 Days Qty: 8 0RF naproxen 500 mg tablet 500 mg PO BID PRN (Reason: pain) Qty: 14 0RF lidocaine 5 % adhesive patch,medicated 1 patch topical DAILY Qty: 30 0RF Rx Instructions: leave on most painful area for up to 12 hrs ibuprofen 600 mg tablet 600 mg PO Q6H PRN (Reason: pain) Qty: 30 0RF diazepam [Valium] 5 mg tablet 5 mg PO TID PRN (Reason: muscle spasm) Qty: 10 0RF Rx Instructions: partial fill is okay Referrals: [facility] [Outside] - 03/06/25 Print Language: Yung
[2025-03-04 18:48] VITALS: BP 118/63; PULSE 76; RESP 16; TEMP 36.6; O2SAT 100
== END 2025-03-04 18:48 | disposition home or self-care (01) ==
PROVIDERS: Registered Nurse Emergency; Emergency Provider Emergency Medicine Emergency Medical Services
DX: R21 Rash and other nonspecific skin eruption (principal)
CPT/HCPCS: 36415; 80053; 85025; 85610; 99283; 99284